=== PATIENT | male | born 1955 | race Caucasian/White ===

== ENCOUNTER 2017-02-06 07:44 | Day surgery (SDC) | payer BC ==
[2016-11-16 11:59] VITALS: BMI 44.1
[~2017-02-06 07:44] MED LIST: LACTATED RINGERS 1,000 ML IV SCH; LIDOCAINE 1% 20 ML VIAL (10MG/ML) FOR IV START INTRADERMA PRN
[2017-02-06 07:56] VITALS: TEMP 97
[2017-02-06 08:05] LABS: Glucose,Whole Blood 157 mg/dL (75-99)
--- NOTE | 2017-02-06 08:06 | P.GSHP ---
History of Present Illness H&P Date: 02/06/17 CHIEF COMPLAINT: Colon screen HISTORY OF PRESENT ILLNESS: The patient is a 61-year-old male who presents for colon screen. Lower endoscopy was offered for further evaluation and management. PAST MEDICAL HISTORY: Please see list. PAST SURGICAL HISTORY: Please see list. MEDICATIONS: Please see list. ALLERGIES: Please see list. SOCIAL HISTORY: No illicit drug use FAMILY HISTORY: No reports of Crohn disease or ulcerative colitis. REVIEW OF ORGAN SYSTEMS: CONSTITUTIONAL: No reports of fevers or chills. PHYSICAL EXAM: VITAL SIGNS: Stable GENERAL: Well-developed pleasant in no acute distress. HEENT: No scleral icterus. Extraocular movements grossly intact. Moist buccal mucosa. NECK: Supple without lymphadenopathy. CHEST: Unlabored respirations. Equal bilateral excursions. CARDIOVASCULAR: Regular rate and rhythm. Distal 2+ pulses. ABDOMEN: Soft, nontender, nondistended. MUSCULOSKELETAL: No clubbing, cyanosis, or edema. ASSESSMENT: 1. Colon screen. PLAN: 1. Recommend proceeding with a lower endoscopy Past Medical History Past Medical History: COPD, Diabetes Mellitus, GERD/Reflux, Hyperlipidemia, Myocardial Infarction ([place]), Prostate Disorder, Sleep Apnea/CPAP/BIPAP Additional Past Medical History / Comment(s): "irregular heart beat", hyperkeratosis hands and feet, enlarged prostate Last Myocardial Infarction Date:: 2005 History of Any Multi-Drug Resistant Organisms: None Reported Past Surgical History: Heart Catheterization With Stent, Orthopedic Surgery Additional Past Surgical History / Comment(s): left knee replacement, rt knee surgery, total 3 cardiac stents, COLONOSCOPY Past Anesthesia/Blood Transfusion Reactions: No Reported Reaction Date of Last Stent Placement:: NOV 2005 Past Psychological History: Anxiety Smoking Status: Former smoker Past Alcohol Use History: Rare Additional Past Alcohol Use History / Comment(s): STARTED SMOKING AGE 15 QUIT 1993, WAS SMOKING 2 PPD. Past Drug Use History: None Reported - Past Family History Mother Family Medical History: Cancer Father Family Medical History: Diabetes Mellitus, Myocardial Infarction ([place]) Additional Family Medical History / Comment(s): CABG Medications and Allergies Home Medications Medication Instructions Recorded Confirmed Type Atorvastatin [Lipitor] 20 mg PO HS 02/04/14 02/06/17 History Doxazosin [Cardura] 4 mg PO HS 02/04/14 02/06/17 History Ezetimibe [Zetia] 10 mg PO QAM 02/04/14 02/06/17 History Finasteride 5 mg PO HS 02/04/14 02/06/17 History Insulin Glargine [Lantus] 62 units SQ HS 02/04/14 02/06/17 History Lisinopril [Zestril] 5 mg PO DAILY 02/04/14 02/06/17 History Metoprolol Tartrate [Lopressor] 50 mg PO HS 02/04/14 02/06/17 History Multivitamin [Men's Multi-Vitamin] 1 tab PO DAILY 02/04/14 02/01/17 History Propafenone HCl [Rythmol] 225 mg PO BID 02/04/14 02/06/17 History Aspirin 325 mg PO HS 07/21/15 02/06/17 History [place]-3 Fatty Acids/Fish Oil [Fish 1 cap PO BID 07/21/15 02/01/17 History Oil 1,000 mg Softgel] Albuterol Inhaler [Ventolin Hfa 1 - 2 puff INHALATION Q6H PRN 07/26/15 02/06/17 History Inhaler] Albuterol Nebulized [Ventolin 2.5 mg INHALATION Q6H PRN 07/26/15 02/01/17 History Nebulized] Cholecalciferol (Vitamin D3) 10,000 unit PO DAILY 07/26/15 02/06/17 History [Vitamin D3] ALPRAZolam [Xanax] 0.5 mg PO BID PRN 11/16/16 02/06/17 History Ascorbic Acid [Vitamin C] 500 mg PO DAILY 11/16/16 02/06/17 History Insulin Aspart [NovoLOG Flexpen] 26 units SQ QAM 11/16/16 02/06/17 History Insulin Aspart [NovoLOG Flexpen] 28 units SQ W/LUNCH 11/16/16 02/06/17 History Insulin Aspart [NovoLOG Flexpen] 30 units SQ W/SUPPER 11/16/16 02/06/17 History Allergies Allergy/AdvReac Type Severity Reaction Status Date / Time adhesive Allergy SKIN PEEL, Verified 11/16/16 11:44 BLISTERS latex Allergy Rash/Hives Verified 11/16/16 11:44 codeine AdvReac SEVERE Verified 11/16/16 11:44 HEADACHE Surgical - Exam Vital Signs Temp Pulse Resp BP Pulse Ox 97.0 F L 74 15 160/81 98 05/03/17 07:55 02/06/17 07:55 02/06/17 07:55 02/06/17 07:55 02/06/17 07:55 Results - Labs Abnormal Lab Results - Last 24 Hours (Table) 02/06/17 Range/Units 08:00 POC Glucose (mg/dL) 157 H (75-99) mg/dL
[2017-02-06] MEDS ORDERED: PROPOFOL 10 MG/ML 20 ML VIAL IV ONE (08:21)
[2017-02-06 08:47] VITALS: PULSE 54; RESP 16
--- NOTE | 2017-02-06 08:48 | P.PCN ---
Date of Procedure: 02/06/17 Description of Procedure: PREOPERATIVE DIAGNOSIS: Colonoscopy screening. POSTOPERATIVE DIAGNOSIS: Colonoscopy screening. Diverticulosis, scattered. OPERATION: Colonoscopy to the ileocecal valve and appendiceal orifice. SURGEON: Lita Campoverde MD. ANESTHESIA: MAC. INDICATIONS: The patient is a 61-year-old male who presents for colonoscopy screening. His last colonoscopy was 29-10 years ago. He denies any family history of colon cancer colon polyps. Benefits and risks were described and informed consent was obtained. DESCRIPTION OF PROCEDURE: The patient had undergone Gatorade, MiraLAX and Dulcolax prep. He had been brought into the operating room and laid in the left lateral decubitus position. After adequate intravenous sedation, the rectum was examined with 2% lidocaine jelly. No external hemorrhoids were encountered. The rectal tone was within normal limits. No lesions were palpated in the rectal vault. An Olympus colonoscope was advanced until the ileocecal valve and appendiceal orifice were clearly viewed. The prep was excellent with clear visualization of the mucosal folds. The scope was removed with visualization of each mucosal fold. Scattered diverticulosis was encountered. No colonic polyps were found. No evidence of focal colitis was found. Retroflexion of the scope demonstrated grade 1 internal hemorrhoids without active bleeding or inflammation. The colon was desufflated. The patient had tolerated the procedure well. Withdrawal time was over 6 minutes. FINDINGS: No external prolapsed hemorrhoids. No arteriovenous malformations. Diverticulosis. No adenomatous polyps. No focal colitis. RECOMMENDATIONS: Lower endoscopy every 10 years per screening guidelines, due 2026; however down to 5 years with family history of colon polyps or cancer. Plan - Discharge Summary Discharge Medication List Atorvastatin [Lipitor] 20 mg PO HS 02/04/14 [History] Doxazosin [Cardura] 4 mg PO HS 02/04/14 [History] Ezetimibe [Zetia] 10 mg PO QAM 02/04/14 [History] Finasteride 5 mg PO HS 02/04/14 [History] Insulin Glargine [Lantus] 62 units SQ HS 02/04/14 [History] Lisinopril [Zestril] 5 mg PO DAILY 02/04/14 [History] Metoprolol Tartrate [Lopressor] 50 mg PO HS 02/04/14 [History] Multivitamin [Men's Multi-Vitamin] 1 tab PO DAILY 02/04/14 [History] Propafenone HCl [Rythmol] 225 mg PO BID 02/04/14 [History] Aspirin 325 mg PO HS 07/21/15 [History] [place]-3 Fatty Acids/Fish Oil [Fish Oil 1,000 mg Softgel] 1 cap PO BID 07/21/15 [ History] Albuterol Inhaler [Ventolin Hfa Inhaler] 1 - 2 puff INHALATION Q6H PRN 07/26/15 [History] Albuterol Nebulized [Ventolin Nebulized] 2.5 mg INHALATION Q6H PRN 07/26/15 [ History] Cholecalciferol (Vitamin D3) [Vitamin D3] 10,000 unit PO DAILY 07/26/15 [History ] ALPRAZolam [Xanax] 0.5 mg PO BID PRN 11/16/16 [History] Ascorbic Acid [Vitamin C] 500 mg PO DAILY 11/16/16 [History] Insulin Aspart [NovoLOG Flexpen] 26 units SQ QAM 11/16/16 [History] Insulin Aspart [NovoLOG Flexpen] 28 units SQ W/LUNCH 11/16/16 [History] Insulin Aspart [NovoLOG Flexpen] 30 units SQ W/SUPPER 11/16/16 [History]
[2017-02-06 09:01] LABS: Glucose,Whole Blood 177 mg/dL (75-99)
[2017-02-06 09:02] VITALS: BP 143/70
== END 2017-02-06 09:34 | disposition home or self-care (01) ==
LOC: ORWHC2ENDO 07:44
PROVIDERS: ATTEND Surgery Plastic and Reconstructive Surgery
DX: Z12.11 Encounter for screening for malignant neoplasm of colon (principal); K57.30 Diverticulosis of large intestine without perforation or abscess without bleeding; K64.0 First degree hemorrhoids; J44.9 Chronic obstructive pulmonary disease, unspecified; E11.9 Type 2 diabetes mellitus without complications; Z79.4 Long term (current) use of insulin; E78.5 Hyperlipidemia, unspecified; N40.0 Benign prostatic hyperplasia without lower urinary tract symptoms; G47.33 Obstructive sleep apnea (adult) (pediatric); Z99.89 Dependence on other enabling machines and devices; K21.9 Gastro-esophageal reflux disease without esophagitis; I25.10 Atherosclerotic heart disease of native coronary artery without angina pectoris; I10 Essential (primary) hypertension; Z87.891 Personal history of nicotine dependence; I25.2 Old myocardial infarction; Z79.82 Long term (current) use of aspirin; Z79.899 Other long term (current) drug therapy; Z91.040 Latex allergy status; Z88.5 Allergy status to narcotic agent; Z91.09 Other allergy status, other than to drugs and biological substances
CPT/HCPCS: J2704; G0121; 45378

== ENCOUNTER → 2018-01-17 | Outpatient (CLI) | payer BC ==
--- NOTE | 2018-01-22 10:04 | P.ARTDOP ---
Arterial Doppler LOWER EXTREMITY ARTERIAL DOPPLER: DATE OF SERVICE: 01/17/2018 Reason for study: Bilateral toe discoloration. Doppler waveforms: Multiphasic bilaterally throughout. Pulse volume recording: Normal configuration. Pressure gradients: None. Ankle-brachial indices: Greater than 1 bilaterally. Toe pressures: 1:30 on the right, 117 on the left Impression: Normal study.
== END | disposition home or self-care (01) ==
LOC: RADUSWWP 13:58
PROVIDERS: ATTEND Family Medicine
DX: I73.9 Peripheral vascular disease, unspecified (principal)
CPT/HCPCS: 93923

== ENCOUNTER → 2018-06-14 | Outpatient (CLI) | payer BC ==
[2018-06-14 10:25] LABS: HCT 43.1 % (39.0-53.0); HGB 13.6 gm/dL (13.0-17.5); MCH 28.6 pg (25.0-35.0); MCHC 31.5 g/dL (31.0-37.0); MCV 90.9 fL (80.0-100.0); Mean Platelet Volume 6.2; Platelet Count 214 k/uL (150-450); RBC 4.74 m/uL (4.30-5.90); RDW 15.4 % (11.5-15.5); WBC 8.6 k/uL (3.8-10.6)
[2018-06-14 10:40] LABS: Anion Gap 8 mmol/L; Blood Urea Nitrogen 15 mg/dL (9-20); Carbon Dioxide 28 mmol/L (22-30); Chloride 104 mmol/L (98-107); Potassium 4.6 mmol/L (3.5-5.1); Sodium 140 mmol/L (137-145)
== END | disposition home or self-care (01) ==
LOC: LABPAT 09:49
PROVIDERS: ATTEND Internal Medicine Cardiovascular Disease
DX: Z01.812 Encounter for preprocedural laboratory examination (principal); I10 Essential (primary) hypertension; E78.2 Mixed hyperlipidemia; E11.9 Type 2 diabetes mellitus without complications
CPT/HCPCS: 36415; 80051; 82565; 84520; 85027

== ENCOUNTER 2018-06-24 06:12 | Day surgery (SDC) | payer BC ==
[2018-06-18 12:03] VITALS: BMI 43.2
[2018-06-24] MEDS ORDERED: ALPRAZolam 0.25 MG TAB PO PRN (06:50)
[2018-06-24] MEDS ORDERED: SODIUM CHLORIDE 0.9% 1,000 ML in EMPTY BAG 1 BAG IV ONE (06:50)
[2018-06-24] MEDS ORDERED: ALPRAZolam 0.5 MG TAB PO PRN (06:50)
[2018-06-24] MEDS ORDERED: NITROGLYCERIN SL TABS 0.4 MG TAB SUBLINGUAL PRN (06:50)
[2018-06-24 06:58] VITALS: PULSE 62; RESP 20; TEMP 98.4
[2018-06-24] MEDS ORDERED: ASPIRIN 325 MG TAB PO ONE ×2 (07:00→07:01)
[2018-06-24] MEDS ORDERED: ATORVASTATIN 80 MG TAB PO ONE (07:00)
[2018-06-24] MEDS ORDERED: VERAPAMIL 2.5 MG/ML 2 ML AMP ONE (07:18)
[2018-06-24] MEDS ORDERED: fentaNYL (PF) 50 MCG/ML 2 ML AMP ONE (07:30)
[2018-06-24] MEDS ORDERED: HEPARIN SODIUM 1,000 UN/ML (10ML VL) ONE (07:30)
[2018-06-24] MEDS ORDERED: MIDAZOLAM 2 MG/2 ML VIAL ONE (07:30)
[2018-06-24 07:31] LABS: Glucose,Whole Blood 183 mg/dL (75-99)
[2018-06-24] MEDS ORDERED: fentaNYL (PF) 50 MCG/ML 2 ML AMP IVP ONE (07:44)
[2018-06-24] MEDS ORDERED: MIDAZOLAM 2 MG/2 ML VIAL IVP ONE (07:44)
[2018-06-24] MEDS ORDERED: IV FLUID CONTINUATION 1,000 ML IV ONE (07:45)
[2018-06-24] MEDS ORDERED: LIDOCAINE 1% (PF) 10MG/ML VIAL SQ ONE (07:47)
[2018-06-24] MEDS ORDERED: LIDOCAINE 1% INJ 10MG/ML (20 ML MDV) ONE (08:18)
[2018-06-24] MEDS ORDERED: IOPAMIDOL-370 125ML BTL INJ ONE (08:25)
[2018-06-24] MEDS ORDERED: RX INFO: IV CONTRAST WAS GIVEN 1 EACH MISC MISCELLANE PRN (08:35)
--- NOTE | 2018-06-24 08:42 | P.CARDCATH ---
Date of Procedure: 06/24/18 Preoperative Diagnosis: Ischemic heart disease and positive stress test Postoperative Diagnosis: Stable coronary artery disease with a mild disease in the circumflex and mild in -stent stenosis involving the RCA and LAD Procedure(s) Performed: Left heart catheterization without left ventriculography Description of Procedure: HISTORY: This is a 62-year-old gentleman with history of hypertension, hypercholesteremia, diabetes and previous myocardial infarction. Patient had stent placement of the RCA and also LAD. Recent stress test showed possible ischemia in the inferolateral segments. Patient is advised to have a cardiac catheterization to rule out any progression of ischemic heart disease. CONSENT:I have discussed the risks, benefits and alternative therapies for the above-mentioned procedure and for both sedation/analgesia as well as necessary blood product administration, if indicated, as they pertain to this patient. The patient has indicated understanding and acceptance of the risks and procedures discussed. PROCEDURE: Patient was brought to the lab in a fasting state. Patient was given some IV sedation. The right groin is infiltrated with lidocaine and right femoral artery was entered using Seldinger technique. A 6-Samo[place] catheter was left in place and selective coronary arteriography and left ventriculography was performed. Patient tolerated the procedure well. Femoral angiogram was performed and Angio-Seal was applied for hemostasis. No immediate complications were noted and patient was transferred to [facility] in a stable condition Conscious Sedation: Versed 1mg Fentanyl 50 g Duration 43minutes HEMODYNAMICS: The aortic pressure is about 130/70. Left ventricular end- diastolic pressure not is not obtained. SELECTIVE CORONARY ARTERIOGRAPHY: LEFT MAIN: Normal length and patent THE LEFT ANTERIOR DESCENDING CORONARY ARTERY:. This is a moderate to good caliber vessel with patent stents in the proximal portion. There maybe mild in-stent stenosis. Rest of the vessel is free of occlusive disease THE LEFT CIRCUMFLEX AND IS CORONARY ARTERY:. This is small nondominant vessel. There is also an intermittent branch. There is mild disease in the circumflex system THE RIGHT CORONARY ARTERY: This is a good caliber vessel and dominant. The stent appears to be patent with mild in-stent stenosis LEFT VENTRICULOGRAPHY: Not performed FINAL IMPRESSION:. Stable coronary artery disease with mild in-stent stenosis involving the RCA and LAD and mild disease in circumflex PLAN: Continuation of the maximum medical therapy and risk factor modification PROGNOSIS:. Good
[2018-06-24] MEDS ORDERED: SODIUM CHLORIDE 0.9% 1,000 ML IV SCH (08:45)
[2018-06-24 15:30] VITALS: BP 111/53
== END 2018-06-24 15:20 | disposition home or self-care (01) ==
LOC: CATHCVL 06:12
PROVIDERS: ATTEND Internal Medicine Cardiovascular Disease
DX: T82.855A Stenosis of coronary artery stent, initial encounter (principal); I25.10 Atherosclerotic heart disease of native coronary artery without angina pectoris; I10 Essential (primary) hypertension; E78.00 Pure hypercholesterolemia, unspecified; E11.9 Type 2 diabetes mellitus without complications; I25.2 Old myocardial infarction; I48.91 Unspecified atrial fibrillation; Z79.82 Long term (current) use of aspirin; Z79.4 Long term (current) use of insulin; Z79.1 Long term (current) use of non-steroidal anti-inflammatories (NSAID); Z79.899 Other long term (current) drug therapy; Z91.040 Latex allergy status; Z88.5 Allergy status to narcotic agent; Z91.09 Other allergy status, other than to drugs and biological substances
CPT/HCPCS: 93458; C1769; C1894; J2250; J3010; J2001; J1644; Q9967

== ENCOUNTER → 2018-11-24 | Outpatient (CLI) | payer BC ==
[2018-11-24 17:25] LABS: HGB 15.2 gm/dL (13.0-17.5); MCH 27.8 pg (25.0-35.0); MCHC 31.7 g/dL (31.0-37.0); MCV 87.6 fL (80.0-100.0); Mean Platelet Volume 6.6; Platelet Count 222 k/uL (150-450); RBC 5.48 m/uL (4.30-5.90); RDW 15.3 % (11.5-15.5); WBC 8.6 k/uL (3.8-10.6)
[2018-11-24 17:34] LABS: Albumin 4.2 g/dL (3.5-5.0); Calcium 9.9 mg/dL (8.4-10.2); INR 0.9 (<1.2); Partial Thromboplastin Time 23.4 sec (22.0-30.0); Potassium 4.6 mmol/L (3.5-5.1); Prothrombin Time 10.1 sec (9.0-12.0); Total Bilirubin 1.1 mg/dL (0.2-1.3); Total Protein 7.3 g/dL (6.3-8.2)
[2018-11-24 17:41] LABS: Appearance,Urine Clear (Clear); Bilirubin,Urine Negative (Negative); Blood,Urine Negative (Negative); Color,Urine Yellow; Glucose,Urine (UA) 1+ (Negative); Hyaline Casts,Urine 8 /lpf (0-2); Ketones,Urine Trace (Negative); Leukocyte Esterase,Urine Moderate (Negative); Mucus,Urine Few /hpf; Nitrite,Urine Negative (Negative); PH, Urine 5.5 (5.0-8.0); Protein,Urine Trace (Negative); RBC,Urine 1 /hpf (0-5); Specific Gravity,Urine 1.027 (1.001-1.035); Squamous Epithelial Cell,Urine <1 /hpf (0-4); Urobilinogen,Urine <2.0 mg/dL (<2.0); WBC,Urine 2 /hpf (0-5)
== END | disposition home or self-care (01) ==
LOC: LABPAT 16:36
PROVIDERS: ATTEND Orthopaedic Surgery
DX: Z01.812 Encounter for preprocedural laboratory examination (principal)
CPT/HCPCS: 80053; 81001; 85027; 85610; 85730

== ENCOUNTER → 2019-04-11 | Outpatient (CLI) | payer BC ==
[2019-04-11 10:12] LABS: HCT 49.6 % (39.0-53.0); HGB 16.8 gm/dL (13.0-17.5); MCH 29.5 pg (25.0-35.0); MCHC 33.9 g/dL (31.0-37.0); MCV 86.9 fL (80.0-100.0); Mean Platelet Volume 6.5; Platelet Count 191 k/uL (150-450); RBC 5.71 m/uL (4.30-5.90); RDW 15.2 % (11.5-15.5); WBC 7.9 k/uL (3.8-10.6)
[2019-04-11 10:22] LABS: ALT 38 U/L (21-72); AST 32 U/L (17-59); African American GFR (CKD) >90 (>60 ml/min/1.73 sqM); Albumin 4.4 g/dL (3.5-5.0); Alkaline Phosphatase 82 U/L (38-126); Anion Gap 12 mmol/L; Blood Urea Nitrogen 22 mg/dL (9-20); Calcium 9.7 mg/dL (8.4-10.2); Carbon Dioxide 23 mmol/L (22-30); Chloride 104 mmol/L (98-107); Glucose 210 mg/dL (74-99); Potassium 4.7 mmol/L (3.5-5.1); Sodium 139 mmol/L (137-145); Total Bilirubin 1.4 mg/dL (0.2-1.3); Total Protein 7.3 g/dL (6.3-8.2)
[2019-04-11 10:32] LABS: INR 0.9 (<1.2); Partial Thromboplastin Time 23.9 sec (22.0-30.0); Prothrombin Time 10.1 sec (9.0-12.0)
[2019-04-11 11:16] LABS: Appearance,Urine Clear (Clear); Bacteria,Urine Rare /hpf; Bilirubin,Urine Negative (Negative); Blood,Urine Negative (Negative); Color,Urine Yellow; Glucose,Urine (UA) 1+ (Negative); Hyaline Casts,Urine 1 /lpf (0-2); Ketones,Urine Negative (Negative); Leukocyte Esterase,Urine Large (Negative); Mucus,Urine Rare /hpf; Nitrite,Urine Negative (Negative); PH, Urine 5.5 (5.0-8.0); Protein,Urine Negative (Negative); RBC,Urine 1 /hpf (0-5); Specific Gravity,Urine 1.018 (1.001-1.035); Squamous Epithelial Cell,Urine <1 /hpf (0-4); Urobilinogen,Urine <2.0 mg/dL (<2.0); WBC,Urine 13 /hpf (0-5)
== END | disposition home or self-care (01) ==
LOC: LABPAT 09:07
PROVIDERS: ATTEND Orthopaedic Surgery
DX: Z01.812 Encounter for preprocedural laboratory examination (principal); Z01.818 Encounter for other preprocedural examination; M17.11 Unilateral primary osteoarthritis, right knee
CPT/HCPCS: 80053; 81001; 85027; 85610; 85730; 87070

== ENCOUNTER 2019-04-28 07:00 | Inpatient (IN) | payer BC ==
[~2019-04-28 07:00] MED LIST changes: +ACETAMINOPHEN TAB 500 MG TAB PO ONE; +DEXAMETHASONE SOD PHOSPHATE 10 MG/ML 1 ML VIAL IV ONE; +HYDROmorphone 0.5 MG/0.5 ML SYRINGE IVP PRN; -LACTATED RINGERS 1,000 ML IV SCH; -LIDOCAINE 1% 20 ML VIAL (10MG/ML) FOR IV START INTRADERMA PRN; +MELOXICAM 7.5 MG TAB PO ONE; +MIDAZOLAM 2 MG/2 ML VIAL IV PRN; +ONDANSETRON 4 MG/2 ML VIAL IVP ONE; +ROPIVACAINE 246.25 MG, EPINEPHrine 0.5 MG, KETOROLAC 30 MG, cloNIDine HCL/PF 80 MCG, WA... MISCELLANE ONE; +TRANEXAMIC ACID 1,000 MG in SODIUM CHLORIDE 0.9% 100 ML IVPB ONE; +ceFAZolin 3 GM in SODIUM CHLORIDE 0.9% 100 ML IVPB ONE
[2019-04-28] MEDS ORDERED: LACTATED RINGERS 1,000 ML IV ONE ×2 (12:04→15:34)
[2019-04-28] MEDS ORDERED: LIDOCAINE 1% 20 ML VIAL (10MG/ML) FOR IV START INTRADERMA ONE (12:04)
[2019-04-28 12:05] LABS: Glucose,Whole Blood 211 mg/dL (75-99)
[2019-04-28] MEDS ORDERED: MIDAZOLAM (PF) 2 MG/2 ML VIAL IVP ONE (12:52)
--- NOTE | 2019-04-28 13:39 | P.ANPRN ---
Procedure Note - Anesthesia - Nerve Block Performed Right Adductor Canal Infusion Time Out Performed: Yes Date of Procedure: 04/28/19 Procedure Start Time: 12:52 Procedure Stop Time: 13:02 Location of Patient Procedure: PreOp Indication: Acute Post-Operative Pain, Dx/Pain Location (Right Knee Pain), Requested by physician (Bryanna) Sedation Type: Sedate with meaningful contact maintained Preparation: Sterile Prep Position: Supine Catheter: Indwelling Needle Types: Pajunk Needle Gauge: Other (see comment) Technique: Ultrasound Injectate: 0.5% Ropivacaine (see comment for volume) (20ml) Blood Aspirated: No Pain Paresthesia on Injection Noted: No Resistance on Injection: Normal Events: Uneventful and Well Tolerated
[2019-04-28] MEDS ORDERED: fentaNYL (PF) 50 MCG/ML 2 ML AMP ONE (13:54)
[2019-04-28] MEDS ORDERED: TRANEXAMIC ACID 1,000 MG/10 ML VIAL ONE (13:54)
[2019-04-28] MEDS ORDERED: PROPOFOL 10 MG/ML 20 ML VIAL IV ONE (13:54)
[2019-04-28] MEDS ORDERED: MIDAZOLAM 2 MG/2 ML VIAL ONE (13:54)
[2019-04-28] MEDS ORDERED: SODIUM CHLORIDE 0.9% 100 ML BAG ONE (13:54)
[2019-04-28] MEDS ORDERED: ceFAZolin 3,000 MG in SODIUM CHLORIDE 0.9% IRRIGATIO 3,000 ML IRRIGATION ONE (14:02)
[2019-04-28] MEDS ORDERED: BISACODYL 10 MG SUPP RECTAL PRN (14:06)
[2019-04-28] MEDS ORDERED: MAGNESIUM HYDROXIDE 2,400 MG/10 ML CUP PO PRN (14:06)
[2019-04-28] MEDS ORDERED: HYDROmorphone 1 MG/ML 1 ML SYRINGE IVP PRN (14:06)
[2019-04-28] MEDS ORDERED: NALOXONE 0.4 MG/ML 1 ML VIAL IV PRN (14:06)
[2019-04-28] MEDS ORDERED: hydrOXYzine PAMOATE 25 MG CAP PO PRN (14:06)
[2019-04-28] MEDS ORDERED: ONDANSETRON 4 MG/2 ML VIAL IVP PRN (14:06)
[2019-04-28] MEDS ORDERED: NA PHOS,M-B/NA PHOS,DI-BA 133 ML ENEMA RECTAL PRN (14:06)
[2019-04-28] MEDS ORDERED: DIAZEPAM 5 MG TAB PO PRN (14:06)
[2019-04-28] MEDS ORDERED: HYDROcodone/APAP 5-325MG 1 EACH TAB PO PRN (14:06)
[2019-04-28] MEDS ORDERED: HYDROmorphone 0.5 MG/0.5 ML SYRINGE IVP PRN ×2 (14:06)
[2019-04-28] MEDS ORDERED: ROPIVACAINE 1,100 MG, SODIUM CHLORIDE 0.9% 500 ML 330 ML MISCELLANE PRN ×2 (14:37)
--- NOTE | 2019-04-28 15:24 | P.OP ---
Date of Procedure: 04/28/19 Preoperative Diagnosis: Severe osteoarthritis right knee Postoperative Diagnosis: Severe osteoarthritis right knee Procedure(s) Performed: Right total knee arthroplasty Implants: Mondragon [employer] Nephew Journey II CR Oxinium cruciate retaining femoral component size 7, right [employer] Journey right nonporous tibial baseplate size 7 Mondr[employer]hew Journey II, XLPE Deep Dished articular insert, size 9 mm, Size 7- 8 right [employer] Journey BCS resurfacing oval patellar component, 35 mm All components were cemented using [place]os R bone cement.. The articulation is Oxinium on polyethylene. Anesthesia: spinal Surgeon: Paul Chopra Product Assembler #1: Moriah Aleman Estimated Blood Loss (ml): 50 Pathology: other (Bone and cartilage) Condition: stable Disposition: PACU Indications for Procedure: After failure of conservative treatment we discussed the surgical and nonsurgical treatment options at length. Patient wishes to proceed with a total knee arthroplasty. Complications specific to this procedure were discussed at length, including but not limited to infection, bleeding, stiffness, and nerve injury. Patient is aware of all these complications and informed consent was obtained Operative Findings: The operative findings are consistent with severe osteoarthritis the right knee Description of Procedure: Patient was seen in the preoperative area consent was reviewed and operative site was marked with a skin marker. An adductor canal pain catheter was placed by anesthesia in the preoperative area. Patient was then brought to the operating room and given preoperative antibiotics intravenously. A spinal anesthetic was administered by the anesthesia department. A tourniquet was placed on the upper thigh and the lower extremity was prepped and draped in usual sterile fashion. A gram of transexamic acid was given. A universal timeout was then performed which confirmed the patient's name, surgical site, ALLERGIES, and consent. The lower extremity was then exsanguinated and tourniquet was inflated to 250 mmHg. A standard and anterior midline approach to the knee was performed. The skin and subcutaneous tissue was dissected down to the patellar tendon. A medial parapatellar arthrotomy was then performed. The knee was then extended, the patellar was everted, and the knee was again flexed. Anterior horns of both menisci were excised, and a release was performed to the posterior medial aspect of the knee. On gross visual inspection, there was complete loss of articular cartilage in the medial and patellofemoral joint spaces. There was also significant cartilage damage in the lateral compartment. There were multiple periarticular osteophytes which were then removed with a Ronguer. The femoral canal was then opened with the appropriate drill, and the intramedullary femoral cutting guide was then placed and set for 5 of valgus. The distal femoral cutting block was then pinned in place, and the distal femur was then cut. The cutting block was then removed and the cut was checked for flatness. Next, the sizing guide was then placed and set for 3 external rotation based off of the epicondylar axis and Whitesides line. After the femur was sized, the appropriate 4-in-1 cutting block was then pinned in place. The anterior condyles were cut without notching. The posterior and chamfer cuts were performed while protecting the collateral ligaments. The cutting block was then removed, and the femoral canal was plugged with autologous bone. Attention was then directed to the tibia. The remaining ACL was removed with a Ronguer, and the tibia was then gently subluxed forward with a large bent knee retractor. Any remaining menisci was excised. The posterior lateral corner was cauterized in order to cauterize the lateral geniculate artery. The extra medullary tibial cutting guide was then placed, set for the appropriate rotation, slope, and depth of resection. The proximal tibia cutting guide was then pinned in place. Proximal tibia was then cut and sized. Next trials were then placed with the appropriate-sized insert. The knee was able to fully extend and flex to 130 and was stable throughout all range of motion. The knee was then extended, patella everted. Patella was then measured, and then using an osteotomy guide, the patella was cut at the appropriate level. The patella was then measured and drilled and the patella trial was then placed. The knee was then taken through range of motion with the patella trial and the patella tracked normally. The knee was then extended patella trial was then removed and the patella was everted. Knee was then flexed and lug holes were drilled through the femoral trial and the femoral trial was then removed. The tibial was then exposed, and the tibial broach guide was then pinned in place after it was set for the appropriate rotation to allow for the most coverage without overhang. The tibia was then reamed and broached. The cut surfaces of bone were then irrigated with pulsatile lavage. The posterior structures were injected with the ropivacaine solution. The knee was also irrigated with Irrisept solution. The components were then opened, the cement was mixed, and the components were then cemented in place. The cement was allowed to harden with the knee in full extension. While the cement was hardening, the remaining soft tissues were then injected with a ropivacaine solution, which consisted of 246.25 mg of ropivacaine, 0.5 mg of epinephrine, 30 mg of Toradol, 80 g of clonidine, and 48.45 mL of sterile water, for a total of 100 mL of fluid injected. After the cemented hardened. The tourniquet was released, and hemostasis was obtained. A second gram of transexamic acid was given. The knee was again irrigated. The knee was again taken through range of motion and found to be stable throughout all range of motion of 0-130, and the patella tracked normally. The fascia was then closed with #2 strata fix suture. The subcutaneous tissue was closed with 3-0 Vicryl and 3-0 strata fix. Dermabond glue was used for the skin and placed with the knee in flexion. The patient was placed in a sterile silver dressing. Patient was then transferred to recovery room in stable condition. The assistant hvac mechanic THA Arnold was required due the complexity surgery and the need for a skilled manager surgical. She assisted in positioning, draping, retraction, and closure of the wound.
[2019-04-28 16:21] LABS: Glucose,Whole Blood 209 mg/dL (75-99)
--- NOTE | 2019-04-28 17:24 | XR ---
PROCEDURE: XR knee limited RT - 2 views DATE AND TIME: 04/28/2019 4:53 PM CLINICAL INDICATION: Evaluation for Postop abnormality and alignment TECHNIQUE: Postoperative AP and crosstable lateral views COMPARISON: 03/01/2016 FINDINGS: Right TKR in anatomic positioning and alignment. No unexpected findings. IMPRESSION: Postoperative 2 views.
[2019-04-28 17:52] VITALS: BMI 41.6
[2019-04-28 20:23] LABS: Glucose,Whole Blood 351 mg/dL (75-99)
[2019-04-28] MEDS: LACTATED RINGERS 1,000 ML IV SCH (20:34)
[2019-04-28] MEDS: SODIUM CHLORIDE 0.9% 1,000 ML IV SCH (20:35)
[2019-04-28] MEDS ORDERED: ALBUTEROL NEBULIZED 2.5 MG/3 ML INHALATION PRN (20:59)
[2019-04-28] MEDS ORDERED: ALPRAZolam 0.5 MG TAB PO PRN (20:59)
[2019-04-28] MEDS ORDERED: INSULIN DETEMIR (LEVEMIR) 100 UNIT/ML SYR SQ SCH (21:00)
[2019-04-28] MEDS ORDERED: ATORVASTATIN 20 MG TAB PO SCH (21:00)
[2019-04-28] MEDS ORDERED: SENNOSIDES-DOCUSATE SODIUM 1 EACH TAB PO SCH (21:00)
[2019-04-28] MEDS ORDERED: FINASTERIDE 5 MG TAB PO SCH (21:00)
[2019-04-28] MEDS ORDERED: DOXAZOSIN 4 MG TAB PO SCH (21:00)
[2019-04-28] MEDS: INSULIN ASPART (NovoLOG) 100 UNIT/ML VIAL SQ SCH (21:50)
[2019-04-28] MEDS: METOPROLOL TARTRATE 50 MG TAB PO SCH (21:51)
[2019-04-28] MEDS: ASPIRIN 325 MG TAB PO SCH (21:51)
[2019-04-28] MEDS: ceFAZolin 3 GM in SODIUM CHLORIDE 0.9% 100 ML IVPB SCH (21:51)
[2019-04-28] MEDS: GABAPENTIN 300 MG CAP PO SCH (21:51)
[2019-04-28] MEDS: PROPAFENONE 225 MG TAB PO SCH (21:51)
--- NOTE | 2019-04-28 23:09 | P.CONS ---
History of Present Illness - Reason for Consult Consult date: 04/28/19 medical management post op Requesting physician: Paul Chopra - Chief Complaint hyperglycemia post op - History of Present Illness 63-year-old male with history of hypertension diabetes Patient presented for scheduled right total knee arthroplasty tolerated procedure well. Patient seen postoperatively no observed immediate complications tolerated by mouth intake patient passed urine. Pain is well tolerated. Patient has hyperglycemia went over his insulin regimen at home. He denies any excessive thirst or polyuria at this point denies any abdominal pain headache changes in vision or hearing. Medication list reviewed. Review of Systems Pertinent positives as noted in HPI. All other systems were reviewed and are negative Past Medical History Past Medical History: COPD, Diabetes Mellitus, GERD/Reflux, Hyperlipidemia, Myocardial Infarction ([place]), Prostate Disorder, Sleep Apnea/CPAP/BIPAP Additional Past Medical History / Comment(s): "irregular heart beat", hyperkeratosis hands and feet, enlarged prostate,no cpap Last Myocardial Infarction Date:: 2005 History of Any Multi-Drug Resistant Organisms: None Reported Past Surgical History: Heart Catheterization With Stent, Orthopedic Surgery Additional Past Surgical History / Comment(s): left knee replacement, rt knee surgery, total 3 cardiac stents, COLONOSCOPY Past Anesthesia/Blood Transfusion Reactions: No Reported Reaction Additional Past Anesthesia/Blood Transfusion Reaction / Comm: no hx blood transfusion Date of Last Stent Placement:: NOV 2005 Smoking Status: Former smoker - Past Family History Mother Family Medical History: Cancer Additional Family Medical History / Comment(s): breast Father Family Medical History: Diabetes Mellitus, Myocardial Infarction ([place]) Additional Family Medical History / Comment(s): CABG Medications and Allergies Home Medications Medication Instructions Recorded Confirmed Type Atorvastatin [Lipitor] 20 mg PO HS 02/04/14 04/28/19 History Doxazosin [Cardura] 4 mg PO HS 02/04/14 04/28/19 History Ezetimibe [Zetia] 10 mg PO QAM 02/04/14 04/28/19 History Finasteride 5 mg PO HS 02/04/14 04/28/19 History Insulin Glargine [Lantus] 62 units SQ HS 02/04/14 04/28/19 History Lisinopril [Zestril] 5 mg PO QAM 02/04/14 04/28/19 History Metoprolol Tartrate [Lopressor] 50 mg PO BID 02/04/14 04/28/19 History Multivitamin [Men's Multi-Vitamin] 1 tab PO QAM 02/04/14 04/28/19 History Propafenone HCl [Rythmol] 225 mg PO BID 02/04/14 04/28/19 History Aspirin 325 mg PO HS 07/21/15 04/28/19 History [place]-3 Fatty Acids/Fish Oil [Fish 1 cap PO BID 07/21/15 04/28/19 History Oil 1,000 mg Softgel] Albuterol Inhaler [Ventolin Hfa 1 - 2 puff INHALATION RT-Q6H PRN 07/26/15 04/28/19 History Inhaler] Albuterol Nebulized [Ventolin 2.5 mg INHALATION RT-QID PRN 07/26/15 04/28/19 History Nebulized] Cholecalciferol (Vitamin D3) 10,000 unit PO DAILY 07/26/15 04/28/19 History [Vitamin D3] ALPRAZolam [Xanax] 0.5 mg PO BID PRN 11/16/16 04/28/19 History Ascorbic Acid [Vitamin C] 500 mg PO DAILY 11/16/16 04/28/19 History Insulin Aspart [NovoLOG Flexpen] 26 units SQ W/BRKFST 11/16/16 04/28/19 History Insulin Aspart [NovoLOG Flexpen] 28 units SQ W/LUNCH 11/16/16 04/28/19 History Insulin Aspart [NovoLOG Flexpen] 30 units SQ W/SUPPER 11/16/16 04/28/19 History Diphenox-Atrop 2.5-0.025 mg 1 tab PO BID 06/24/18 04/28/19 History [Lomotil] Fluticasone/Salmeterol [Advair 1 puff INHALATION RT-BID 06/24/18 04/28/19 History 100-50 Diskus] Gabapentin [Neurontin] 300 mg PO TID 12/02/18 04/28/19 History HYDROcodone/APAP 10-325MG [[place] 1 tab PO DAILY PRN 12/02/18 04/28/19 History 10-325] Allergies Allergy/AdvReac Type Severity Reaction Status Date / Time adhesive Allergy SKIN PEEL, Verified 04/28/19 19:04 BLISTERS(states "paper tape is ok" latex Allergy Rash/Hives Verified 04/28/19 19:04 codeine AdvReac SEVERE Verified 04/28/19 19:04 HEADACHE Physical Exam Vitals: Vital Signs Temp Pulse Resp BP Pulse Ox 04/28/19 17:46 97.9 F 67 17 144/68 97 04/28/19 17:02 61 16 124/60 98 04/28/19 16:47 71 16 138/64 93 L 04/28/19 16:34 65 16 141/65 93 L 04/28/19 16:15 68 16 142/62 93 L 04/28/19 16:00 73 16 145/66 90 L 04/28/19 15:54 97.5 F L 74 16 139/64 94 L 04/28/19 13:09 95 18 149/67 98 04/28/19 12:49 84 18 154/72 96 04/28/19 12:08 97.8 F 118 H 118 H 155/83 95 Intake and Output 04/28/19 04/28/19 04/28/19 06:59 14:59 22:59 Intake Total 1101 636 Output Total 50 Balance 1101 586 Intake: IV 1101 200 Oral 436 Output: Estimated Blood Loss 50 Constitutional: No acute distress, conversant, pleasant Eyes: Anicteric sclerae, moist conjunctiva, no lid-lag Pupils equal round reactive to light ENMT: NC/AT Oropharynx clear, no erythema, or exudates Neck: Supple, FROM, no masses, or JVD No carotid bruits No thyromegaly Lungs: Clear to auscultation Clear to percussion Normal respiratory effort, no accessory muscle use Cardiovascular: Heart regular in rate and rhythm, No murmurs, gallops, or rubs No peripheral edema Abdominal: Soft Nontender, no guarding, rebound or rigidity Abdomen moving with respiration Normoactive bowel sounds No hepatomegaly, No splenomegaly No palpable mass No abdominal wall hernia noted Skin: Normal temperature, tone, texture, turgor No induration No subcutaneous nodules No rash, lesions No ulcers Extremities: No digital cyanosis No clubbing Pedal pulses intact and symmetrical Radial pulses intact and symmetrical No calf tenderness Psychiatric: Alert and oriented to person, place and time Appropriate affect fair judgment Neuro Muscles Strength 5/5 in all 4 extremities , limited exam over right lower extremity due to pain from surgery Sensation to light touch grossly present throughout Cranial nerves II-XII grossly intact No focal sensory deficits Lymphatics: no palpable cervical or supraclavicular , or inguinal lymph nodes Results Labs: Abnormal Lab Results - Last 24 Hours (Table) 04/28/19 04/28/19 04/28/19 Range/Units 12:03 16:19 20:23 POC Glucose (mg/dL) 211 H 209 H 351 H (75-99) mg/dL Assessment and Plan Assessment: 63 year old male with history of DM, hypertension , admitted for TKR due to advanced severe OA. patient tolerated procedure well, medicine consulted for post op management of DM and hypertension . Plan: Hyperlycemia , DM type 2 insuline sliding scale insuline TID 10 units long acting insulin , home dose of 62 units COPD without exacerbation PRN duoneb continue home inhalers hypertension , continue homemeds severe advanced OA of the right knee, s/p TKR POD zero pain and DVT PPx per orthopedic service IRENE not compliant with his CPAP use f/u morning labs Thank you for allowing us to participate in the care of this patient. Do not hesitate to contact us with questions. Someone can be reached from the [facility] hospitalist group at all hours of the day at [phone].
[2019-04-29 03:01] VITALS: RESP 16
[2019-04-29] MEDS: HYDROcodone/APAP 5-325MG 1 EACH TAB PO PRN ×2 (05:27→11:33)
[2019-04-29] MEDS: ceFAZolin 3 GM in SODIUM CHLORIDE 0.9% 100 ML IVPB SCH (05:27)
[2019-04-29] MEDS: LACTATED RINGERS 1,000 ML IV SCH (05:33)
[2019-04-29] MEDS: SODIUM CHLORIDE 0.9% 1,000 ML IV SCH (05:33)
--- NOTE | 2019-04-29 06:10 | P.PN ---
Progress Note - Text Progress Note Date: 04/29/19 63-year-old male status post right total knee arthroplasty postop day #1 with a adductor canal catheter. Overall doing well VAS between a 2-4-10 in severity. He does take some oral medication. He's been ambulating all night with no issue. Dressing site looks clean dry and intact. No motor or sensory deficit. Plan is to continue with infusion and likely discharge home.
[2019-04-29 06:52] LABS: Glucose,Whole Blood 168 mg/dL (75-99)
[2019-04-29] MEDS: INSULIN ASPART (NovoLOG) 100 UNIT/ML VIAL SQ SCH ×4 (07:29→12:04)
[2019-04-29] MEDS ORDERED: INSULIN ASPART (NovoLOG) 100 UNIT/ML VIAL SQ SCH ×2 (07:30)
[2019-04-29 07:56] VITALS: BP 144/76; PULSE 76; TEMP 98.3
[2019-04-29] MEDS ORDERED: SYMBICORT 80-4.5 MCG INHALER INHALATION SCH (08:00)
[2019-04-29 08:39] LABS: Basophils % (A) 0 %; Eosinophils # (A) 0.1 k/uL (0-0.7); Eosinophils % (A) 1 %; HCT 41.4 % (39.0-53.0); Lymphocytes # (A) 1.4 k/uL (1.0-4.8); Lymphocytes % (A) 11 %; MCH 29.9 pg (25.0-35.0); MCHC 33.8 g/dL (31.0-37.0); MCV 88.6 fL (80.0-100.0); Mean Platelet Volume 6.8; Monocytes # (A) 0.6 k/uL (0-1.0); Monocytes % (A) 5 %; Neutrophils # (A) 10.1 k/uL (1.3-7.7); Neutrophils % (A) 82 %; Platelet Count 207 k/uL (150-450); RBC 4.68 m/uL (4.30-5.90); RDW 15.1 % (11.5-15.5); WBC 12.3 k/uL (3.8-10.6)
[2019-04-29 08:43] LABS: African American GFR (CKD) >90 (>60 ml/min/1.73 sqM); Anion Gap 12 mmol/L; Blood Urea Nitrogen 21 mg/dL (9-20); Calcium 9.4 mg/dL (8.4-10.2); Carbon Dioxide 21 mmol/L (22-30); Chloride 104 mmol/L (98-107); Glucose 189 mg/dL (74-99); Potassium 4.4 mmol/L (3.5-5.1); Sodium 137 mmol/L (137-145)
[2019-04-29] MEDS ORDERED: MELOXICAM 7.5 MG TAB PO SCH (09:00)
[2019-04-29] MEDS ORDERED: EZETIMIBE 10 MG TAB PO SCH (09:00)
[2019-04-29] MEDS ORDERED: LISINOPRIL 5 MG TAB PO SCH (09:00)
--- NOTE | 2019-04-29 09:04 | P.DS ---
Providers Date of admission: 04/28/19 17:19 Expected date of discharge: 04/29/19 Attending physician: Paul Chopra Consults: 04/28/19 14:06 Consult Physician Routine Consulting Provider: Pradeep Louis Consult Reason/Comments: medical management Do you want consulting provider notified?: Yes Primary care physician: Stated None - Discharge Diagnosis(es) (1) Osteoarthritis of right knee Current Visit: Yes Status: Acute (2) S/P total knee arthroplasty Current Visit: Yes Status: Acute Hospital Course: This is a 63-year-old male with known history of degenerative arthritis of the right knee. The patient presents for evaluation. After discussion and consideration patient elects to proceed with total knee arthroplasty. The patient is seen preoperatively by Dr. Chopra and medically cleared for surgery by their primary care physician. Patient is admitted to [facility] on 04/28/2019 for total knee arthroplasty. The procedures performed without complication or sequelae. The patient is doing well postoperatively. Labs and vital signs are stable on day of discharge. On day of discharge patient's knee incision is healing well. There is minimal erythema. There is no drainage noted at this time. There is minimal soft tissue swelling to the knee. Patient has full foot and ankle motion without difficulty or pain. Calf is soft and nontender to palpation. Neurovascular status to the right lower extremity is intact. Patient is discharged home in good condition. Opioid start talking form is reviewed and signed at patient bedside. Please see med rec for accurate list of home medications. Plan - Discharge Summary Discharge Rx Participant: No New Discharge Prescriptions: New Aspirin 325 mg PO BID #60 tab HYDROcodone/APAP 5-325MG [[place] 5-325] 1 - 2 tab PO Q6HR PRN #56 tab PRN Reason: Pain Sennosides [Senokot] 1 tab PO BID #60 tablet No Action Lisinopril [Zestril] 5 mg PO QAM Atorvastatin [Lipitor] 20 mg PO HS Metoprolol Tartrate [Lopressor] 50 mg PO BID Insulin Glargine [Lantus] 62 units SQ HS Multivitamin [Men's Multi-Vitamin] 1 tab PO QAM Ezetimibe [Zetia] 10 mg PO QAM Doxazosin [Cardura] 4 mg PO HS Propafenone HCl [Rythmol] 225 mg PO BID Finasteride 5 mg PO HS [place]-3 Fatty Acids/Fish Oil [Fish Oil 1,000 mg Softgel] 1 cap PO BID Aspirin 325 mg PO HS Albuterol Nebulized [Ventolin Nebulized] 2.5 mg INHALATION RT-QID PRN PRN Reason: Shortness Of Breath Albuterol Inhaler [Ventolin Hfa Inhaler] 1 - 2 puff INHALATION RT-Q6H PRN PRN Reason: Wheezing Cholecalciferol (Vitamin D3) [Vitamin D3] 10,000 unit PO DAILY Ascorbic Acid [Vitamin C] 500 mg PO DAILY Insulin Aspart [NovoLOG Flexpen] 30 units SQ W/SUPPER Insulin Aspart [NovoLOG Flexpen] 28 units SQ W/LUNCH Insulin Aspart [NovoLOG Flexpen] 26 units SQ W/BRKFST ALPRAZolam [Xanax] 0.5 mg PO BID PRN PRN Reason: Anxiety Diphenox-Atrop 2.5-0.025 mg [Lomotil] 1 tab PO BID Fluticasone/Salmeterol [Advair 100-50 Diskus] 1 puff INHALATION RT-BID HYDROcodone/APAP 10-325MG [[place] 10-325] 1 tab PO DAILY PRN PRN Reason: Pain Gabapentin [Neurontin] 300 mg PO TID Discharge Medication List Atorvastatin [Lipitor] 20 mg PO HS 02/04/14 [History] Doxazosin [Cardura] 4 mg PO HS 02/04/14 [History] Ezetimibe [Zetia] 10 mg PO QAM 02/04/14 [History] Finasteride 5 mg PO HS 02/04/14 [History] Insulin Glargine [Lantus] 62 units SQ HS 02/04/14 [History] Lisinopril [Zestril] 5 mg PO QAM 02/04/14 [History] Metoprolol Tartrate [Lopressor] 50 mg PO BID 02/04/14 [History] Multivitamin [Men's Multi-Vitamin] 1 tab PO QAM 02/04/14 [History] Propafenone HCl [Rythmol] 225 mg PO BID 02/04/14 [History] Aspirin 325 mg PO HS 07/21/15 [History] [place]-3 Fatty Acids/Fish Oil [Fish Oil 1,000 mg Softgel] 1 cap PO BID 10/15/15 [History] Albuterol Inhaler [Ventolin Hfa Inhaler] 1 - 2 puff INHALATION RT-Q6H PRN [History] Albuterol Nebulized [Ventolin Nebulized] 2.5 mg INHALATION RT-QID PRN 07/26/15 [History] Cholecalciferol (Vitamin D3) [Vitamin D3] 10,000 unit PO DAILY 07/26/15 [History] ALPRAZolam [Xanax] 0.5 mg PO BID PRN 11/16/16 [History] Ascorbic Acid [Vitamin C] 500 mg PO DAILY 11/16/16 [History] Insulin Aspart [NovoLOG Flexpen] 26 units SQ W/BRKFST 11/16/16 [History] Insulin Aspart [NovoLOG Flexpen] 28 units SQ W/LUNCH 11/16/16 [History] Insulin Aspart [NovoLOG Flexpen] 30 units SQ W/SUPPER 11/16/16 [History] Diphenox-Atrop 2.5-0.025 mg [Lomotil] 1 tab PO BID 06/24/18 [History] Fluticasone/Salmeterol [Advair 100-50 Diskus] 1 puff INHALATION RT-BID 06/24/18 [History] Gabapentin [Neurontin] 300 mg PO TID 12/02/18 [History] HYDROcodone/APAP 10-325MG [[place] 10-325] 1 tab PO DAILY PRN 12/02/18 [History] Aspirin 325 mg PO BID #60 tab 04/29/19 [Rx] HYDROcodone/APAP 5-325MG [[place] 5-325] 1 - 2 tab PO Q6HR PRN #56 tab 04/29/19 [Rx] Sennosides [Senokot] 1 tab PO BID #60 tablet 04/29/19 [Rx] Follow up Appointment(s)/Referral(s): Paul Chopra DO [Doctor of Osteopathic Medicine] - 2 Weeks Activity/Diet/Wound Care/Special Instructions: Weightbearing as tolerated with a walker. CPM 5-6h daily. Leave dressing intact. May be removed by home care nurse or by patient in 10 days. May shower with dressing on. Please follow up with [facility] and call with any questions or concerns, . Discharge Disposition: HOME WITH HOME HEALTH SERVICES
[2019-04-29] MEDS: METOPROLOL TARTRATE 50 MG TAB PO SCH (09:17)
[2019-04-29] MEDS: GABAPENTIN 300 MG CAP PO SCH (09:18)
[2019-04-29] MEDS: ASPIRIN 325 MG TAB PO SCH (09:18)
[2019-04-29] MEDS: PROPAFENONE 225 MG TAB PO SCH (09:18)
--- NOTE | 2019-04-29 10:12 | P.PN ---
Subjective Progress Note Date: 04/29/19 Principal diagnosis: knee pain Patient seen and examined at bedside. He states his pain is well controlled. Denies any chest pain, shortness breath, nausea, or vomiting. Objective - Vital Signs Vital signs: Vital Signs Temp 98.3 F 04/29/19 07:00 Pulse 76 04/29/19 08:15 Resp 16 04/29/19 08:15 BP 144/76 04/29/19 07:00 Pulse Ox 96 04/29/19 07:00 Intake & Output 04/28/19 04/29/19 04/29/19 18:59 06:59 18:59 Intake Total 1737 917.5 566 Output Total 50 Balance 1687 917.5 566 Intake: IV 1301 Intake, IV Titration 327.5 Amount Sodium Chloride 0.9% 1, 227.5 000 ml @ 65 mls/hr IV . [id number] [facility] Rx#:[id number] ceFAZolin 3 gm In Sodium 100 Chloride 0.9% 100 ml @ 200 mls/hr IVPB Q8H [facility] Rx#:[id number] Oral 436 590 566 Output: Estimated Blood Loss 50 Other: Voiding Method Toilet Toilet Urinal Urinal # Voids 4 1 - Exam General: non toxic, no distress, appears at stated age, Obese Derm: dreeing in place over right knee, warm, dry Head: atraumatic, normocephalic, symmetric Eyes: EOMI, no lid lag, anicteric sclera Mouth: no lip lesion, mucus membranes moist Cardiovascular: S1S2 reg, no murmur, positive posterior tibial pulse bilateral, Lungs: CTA bilateral, no rhonchi, no rales , no accessory muscle use Abdominal: soft, nontender to palpation, no guarding, no appreciable organomegaly Ext: no gross muscle atrophy, no edema, no contractures Neuro: CN II-XI grossly intact, no focal neuro deficits Psych: Alert, oriented, appropriate affect - Labs CBC & Chem 7: 04/29/19 07:40 04/29/19 07:40 Labs: Abnormal Lab Results - Last 24 Hours (Table) 04/28/19 04/28/19 04/28/19 Range/Units 12:03 16:19 20:23 WBC (3.8-10.6) k/uL Neutrophils # (1.3-7.7) k/uL Carbon Dioxide (22-30) mmol/L BUN (9-20) mg/dL Glucose (74-99) mg/dL POC Glucose (mg/dL) 211 H 209 H 351 H (75-99) mg/dL 04/29/19 04/29/19 04/29/19 Range/Units 06:48 07:40 07:40 WBC 12.3 H (3.8-10.6) k/uL Neutrophils # 10.1 H (1.3-7.7) k/uL Carbon Dioxide 21 L (22-30) mmol/L BUN 21 H (9-20) mg/dL Glucose 189 H (74-99) mg/dL POC Glucose (mg/dL) 168 H (75-99) mg/dL Assessment and Plan Assessment: Patient is a 63-year-old male status post right total knee arthroplasty Diabetes mellitus type 2, insulin-requiring, with hyperglycemia on admission -Discussed with patient the need for close blood sugar monitoring in the postoperative period. He will continue checking blood sugars 4 times daily. He'll call his family physician should he have consistent blood sugars greater than 200. His blood sugar typically runs around 150. We discussed the risks of elevated blood sugars in the postop period including delayed wound healing and increased risk of infection. (added to discharge instructions) COPD without exacerbation -Resume home inhaler regimen on discharge Hypertension, controlled -Continue current medications Obstructive sleep apnea -Patient noncompliant with CPAP. Patient is medically optimized for discharge at the discretion of orthopedic surgery.
[2019-04-29 11:15] LABS: Glucose,Whole Blood 162 mg/dL (75-99)
== END 2019-04-29 13:08 | disposition home health service (06) | DRG 470 ==
LOC: 4SSUR 17:19
PROVIDERS: ADMIT Orthopaedic Surgery; ATTEND Orthopaedic Surgery
PROC: 0SRC069 Replacement of Right Knee Joint with Oxidized Zirconium on Polyethylene Synthetic Substitute, Cemented, Open Approach (ICD-10-PCS; principal; 2019-04-28 14:35)
DX: M17.11 Unilateral primary osteoarthritis, right knee (principal); Z68.41 Body mass index [BMI] 40.0-44.9, adult; E11.65 Type 2 diabetes mellitus with hyperglycemia; J44.9 Chronic obstructive pulmonary disease, unspecified; I10 Essential (primary) hypertension; E78.5 Hyperlipidemia, unspecified; E66.9 Obesity, unspecified; G47.33 Obstructive sleep apnea (adult) (pediatric); K21.9 Gastro-esophageal reflux disease without esophagitis; Z96.652 Presence of left artificial knee joint; N40.0 Benign prostatic hyperplasia without lower urinary tract symptoms; Z87.891 Personal history of nicotine dependence; Z79.899 Other long term (current) drug therapy; Z79.4 Long term (current) use of insulin; Z79.82 Long term (current) use of aspirin; I25.2 Old myocardial infarction; Z82.49 Family history of ischemic heart disease and other diseases of the circulatory system; Z83.3 Family history of diabetes mellitus; Z91.19 Patient's noncompliance with other medical treatment and regimen; Z95.5 Presence of coronary angioplasty implant and graft; Z99.89 Dependence on other enabling machines and devices; Z98.890 Other specified postprocedural states; Z91.040 Latex allergy status; Z88.5 Allergy status to narcotic agent; Z91.09 Other allergy status, other than to drugs and biological substances
CPT/HCPCS: 80048; 85025; 88300

== ENCOUNTER → 2020-05-26 | Outpatient (CLI) | payer BC ==
--- NOTE | 2020-06-01 10:12 | P.ARTDOP ---
Arterial Doppler LOWER EXTREMITY ARTERIAL DOPPLER: DATE OF SERVICE: 05/26/2020 Reason for study: Bilateral toe discoloration. Doppler waveforms: Multiphasic bilaterally throughout. Pulse volume recording: Mild distal blunting. Pressure gradients: None. Ankle-brachial indices: Cannot occlude. Toe brachial indices: 1.03 on the right, 1 on the left Impression: Normal study. Suspect nonhemodynamically significant calcific wall disease..
== END | disposition home or self-care (01) ==
LOC: RADUSWWP 07:29
PROVIDERS: ATTEND Family Medicine
DX: I73.9 Peripheral vascular disease, unspecified (principal)
CPT/HCPCS: 93923

== ENCOUNTER → 2020-12-08 | Outpatient (CLI) | payer BC ==
--- NOTE | 2020-12-08 12:03 | US ---
EXAMINATION TYPE: US carotid duplex BILAT DATE OF EXAM: 12/08/2020 COMPARISON: NONE CLINICAL HISTORY: R42 Dizziness and giddiness. Patient stated loses his balance when stands up. EXAM MEASUREMENTS: RIGHT: Peak Systolic Velocity (PSV) cm/sec ----- Right CCA: 47.9 ----- Right ICA: 64.9 ----- Right ECA: 79.1 ICA/CCA ratio: 1.4 RIGHT: End Diastole cm/sec ----- Right CCA: 12.9 ----- Right ICA: 25.2 ----- Right ECA: 10.9 LEFT: Peak Systolic Velocity (PSV) cm/sec ----- Left CCA: 65.6 ----- Left ICA: 57.9 ----- Left ECA: 82.9 ICA/CCA ratio: 0.9 LEFT: End Diastole cm/sec ----- Left CCA: 15.0 ----- Left ICA: 15.0 ----- Left ECA: 12.1 VERTEBRALS (direction of flow): Right Vertebral: Antegrade Left Vertebral: Antegrade Rhythm: Normal Mild to moderate mixed plaque is imaged at bilateral carotid bifurcation on grayscale images, but PSV is wnl bilaterally. IMPRESSION: Mild to moderate atherosclerotic changes, no hemodynamically significant stenosis seen i n either internal carotid artery . Criteria for Assigning % of Stenosis / Diameter reduction (Estimation based on the indirect measurements of the internal carotid artery velocities (ICA PSV). 1. Normal (no stenosis)=ICA PSV < 125 cm/s: ratio < 2.0: ICA EDV<40 cm/s. 2. Less than 50% stenosis=ICA PSV < 125 cm/s: ratio < 2.0: ICA EDV<40 cm/s. 3. 50 to 69% stenosis=ICA PSV of 125 to 230 cm/s: ration 2.0 ? 4.0: ICA EDV 40-100 cm/s. 4. Greater than 70% stenosis to near occlusion= ICA PSV > 230 cm/s: ratio > 4.0: ICA EDV > 100 cm/s. 5. Near occlusion= ICA PSV velocities may be low or undetectable: variable ratio and ICA EDV. 6. Total occlusion=unable to detect flow.
== END | disposition home or self-care (01) ==
LOC: RADUSWWP 10:48
PROVIDERS: ATTEND Family Medicine
DX: I65.23 Occlusion and stenosis of bilateral carotid arteries (principal)
CPT/HCPCS: 93880

== ENCOUNTER 2021-12-15 17:15 | Emergency (ER) | payer BC ==
[2021-12-15 17:40] VITALS: RESP 20; TEMP 98.1
--- NOTE | 2021-12-15 18:19 | ED ---
General Adult HPI - General Chief complaint: Urogenital Stated complaint: catheter plugged Time Seen by Provider: 12/15/21 18:05 Source: patient, family, RN notes reviewed, old records reviewed Mode of arrival: ambulatory Limitations: no limitations - History of Present Illness Initial comments: 66-year-old male, alert and oriented 4, presents to the emergency room with family member complaining of his and indwelling Juarez catheter not draining. He has increased abdominal pain 10 out of 10. Patient has an enlarged prostate and a catheter was placed in November. He is scheduled for surgery in January. He is a patient of Dr. French. -: days(s) (1) Location: pelvis (bladder) Severity scale (1-10): 10 Consistency: now resolved Associated Symptoms: other (juarez catheter not draining) - Related Data Home Medications Medication Instructions Recorded Confirmed Atorvastatin [Lipitor] 20 mg PO 02/04/14 04/28/19 Doxazosin [Cardura] 4 mg PO 02/04/14 04/28/19 Ezetimibe [Zetia] 10 mg PO [facility] 02/04/14 04/28/19 Finasteride 5 mg PO 02/04/14 04/28/19 Insulin Glargine [Lantus Vial] 62 units SQ 02/04/14 04/28/19 Metoprolol Tartrate [Lopressor] 50 mg PO BID 02/04/14 04/28/19 Multivitamin [Men's Multi-Vitamin] 1 tab PO [facility] 02/04/14 04/28/19 Propafenone HCl [Rythmol] 225 mg PO BID 02/04/14 04/28/19 lisinopriL [Zestril] 5 mg PO [facility] 02/04/14 04/28/19 Aspirin 325 mg PO 07/21/15 04/28/19 [place]-3 Fatty Acids/Fish Oil [Fish 1 cap PO BID 07/21/15 04/28/19 Oil 1,000 mg Softgel] Albuterol Inhaler (Mhu) [Ventolin 1 - 2 puff INHALATION RT-Q6H PRN 07/26/15 Hfa Inhaler (Mhu)] Albuterol Nebulized [Ventolin 2.5 mg INHALATION RT-QID PRN 07/26/15 04/28/19 Nebulized] Cholecalciferol (Vitamin D3) 10,000 unit PO DAILY 07/26/15 04/28/19 [Vitamin D3] ALPRAZolam [Xanax] 0.5 mg PO BID PRN 11/16/16 04/28/19 Ascorbic Acid [Vitamin C] 500 mg PO DAILY 11/16/16 04/28/19 Insulin Aspart [NovoLOG Flexpen] 26 units SQ W/BRKFST 11/16/16 04/28/19 Insulin Aspart [NovoLOG Flexpen] 28 units SQ W/LUNCH 11/16/16 04/28/19 Insulin Aspart [NovoLOG Flexpen] 30 units SQ W/SUPPER 11/16/16 04/28/19 Fluticasone/Salmeterol [Advair 1 puff INHALATION RT-BID 06/24/18 04/28/19 100-50 Diskus] Gabapentin [Neurontin] 300 mg PO TID 12/02/18 04/28/19 HYDROcodone/APAP 10-325MG [[place] 1 tab PO DAILY PRN 12/02/18 04/28/19 10-325] Previous Rx's Medication Instructions Recorded Aspirin 325 mg PO BID #60 tab 04/29/19 HYDROcodone/APAP 5-325MG [[place] 1 - 2 tab PO Q6HR PRN #56 tab 04/29/19 5-325] Sennosides [Senokot] 1 tab PO BID #60 tablet 04/29/19 Cephalexin [Keflex] 500 mg PO Q6HR #40 cap 12/15/21 Allergies Allergy/AdvReac Type Severity Reaction Status Date / Time adhesive Allergy SKIN PEEL, Verified 12/15/21 17:35 BLISTERS(states "paper tape is ok" latex Allergy Rash/Hives Verified 12/15/21 17:35 codeine AdvReac SEVERE Verified 12/15/21 17:35 HEADACHE Review of Systems ROS Statement: Those systems with pertinent positive or pertinent negative responses have been documented in the HPI. ROS Other: All systems not noted in ROS Statement are negative. Past Medical History Past Medical History: COPD, Diabetes Mellitus, GERD/Reflux, Hyperlipidemia, Myocardial Infarction ([place]), Prostate Disorder, Sleep Apnea/CPAP/BIPAP Additional Past Medical History / Comment(s): "irregular heart beat", hy perkeratosis hands and feet, enlarged prostate,no cpap Last Myocardial Infarction Date:: 2005 History of Any Multi-Drug Resistant Organisms: None Reported Past Surgical History: Heart Catheterization With Stent, Orthopedic Surgery Additional Past Surgical History / Comment(s): left knee replacement, rt knee surgery, total 3 cardiac stents, COLONOSCOPY Past Anesthesia/Blood Transfusion Reactions: No Reported Reaction Additional Past Anesthesia/Blood Transfusion Reaction / Comment(s): no hx blood transfusion Date of Last Stent Placement:: NOV 2005 Past Psychological History: Anxiety, Depression Smoking Status: Never smoker Past Alcohol Use History: None Reported Past Drug Use History: None Reported - Past Family History Mother Family Medical History: Cancer Additional Family Medical History / Comment(s): breast Father Family Medical History: Diabetes Mellitus, Myocardial Infarction ([place]) Additional Family Medical History / Comment(s): CABG General Exam Limitations: no limitations General appearance: alert, in no apparent distress Head exam: Present: atraumatic, normocephalic, normal inspection Eye exam: Absent: scleral icterus, conjunctival injection, periorbital swelling, periorbital tenderness Neck exam: Present: normal inspection, full ROM. Absent: meningismus Respiratory exam: Present: normal lung sounds bilaterally. Absent: respiratory distress, wheezes, rales, rhonchi, stridor, chest wall tenderness, decreased breath sounds Cardiovascular Exam: Present: bradycardia GI/Abdominal exam: Present: distended, tenderness (over bladder). Absent: gua rding, rebound, rigid exam: Present: circumcision. Absent: urethral discharge External exam: Absent: erythema, swelling, lesions Extremities exam: Present: normal capillary refill Back exam: Present: normal inspection. Absent: tenderness, CVA tenderness (R), CVA tenderness (L), rash noted Neurological exam: Present: alert, oriented X3 Psychiatric exam: Present: normal affect, normal mood Skin exam: Present: warm, dry, normal color. Absent: rash, cyanosis, diaphoretic Course Vital Signs 12/15/21 17:35 Temperature 98.1 F Pulse Rate 57 L Respiratory 20 Rate Blood Pressure 146/63 O2 Sat by Pulse 96 Oximetry Medical Decision Making - Medical Decision Making 66-year-old male presents to the emergency room with complaints of Juarez catheter not draining today with bladder distention and spasms. Juarez catheter was changed by the nurse and 1400 mL of yellow urine returned. Patient has complete relief of bladder distention and spasms. The Juarez catheter tubing was thick with what appears to be laith. Urinalysis shows 4+ glucose, small blood, 51 WBCs and few bacteria. He will be treated for urinary tract infection with keflex and given diflucan in the ER. I directed him to follow-up with his urologist for urinary tract infection. I also advised him to follow up with his primary care doctor for his elevated blood sugars. Patient is agreeable to this plan of care Case discussed with Dr. Mina. - Lab Data Lab Results 12/15/21 Range/Units 18:17 Urine Color Light Yellow Urine Appearance Clear (Clear) Urine pH 5.0 (5.0-8.0) Ur Specific [place] 1.026 (1.001-1.035) Urine Protein Negative (Negative) Urine Glucose (UA) 4+ H (Negative) Urine Ketones Negative (Negative) Urine Blood Small H (Negative) Urine Nitrite Positive (Negative) Urine Bilirubin Negative (Negative) Urine Urobilinogen <2.0 (<2.0) mg/dL Ur Leukocyte Esterase Moderate H (Negative) Urine RBC 9 H (0-5) /hpf Urine WBC 51 H (0-5) /hpf Ur Squamous Epith Cells <1 (0-4) /hpf Urine Bacteria Few H (None) /hpf Hyaline Casts 1 (0-2) /lpf Urine Mucus Rare H (None) /hpf Disposition Clinical Impression: Juarez catheter problem, UTI (urinary tract infection) Disposition: HOME SELF-CARE Condition: Good Instructions (If sedation given, give patient instructions): Urinary Tract Infection in Men (ED) Additional Instructions: Increase your fluid intake. Take the antibiotics as prescribed. Follow-up with your urologist on Saturday. Talk to your primary care doctor about your elevated blood sugar levels. Return to the emergency room if any new or concerning symptoms including fever, nausea, vomiting or back pain. Prescriptions: Cephalexin [Keflex] 500 mg PO Q6HR #40 cap Is patient prescribed a controlled substance at d/c from ED?: No Referrals: Greg Cummings MD [Primary Care Provider] - 1-2 days Daryl French MD [STAFF PHYSICIAN] - 1-2 days Time of Disposition: 18:53
[2021-12-15 18:27] LABS: Appearance,Urine Clear (Clear); Bacteria,Urine Few /hpf; Bilirubin,Urine Negative (Negative); Blood,Urine Small (Negative); Color,Urine Light Yellow; Glucose,Urine (UA) 4+ (Negative); Hyaline Casts,Urine 1 /lpf (0-2); Ketones,Urine Negative (Negative); Leukocyte Esterase,Urine Moderate (Negative); Mucus,Urine Rare /hpf; Nitrite,Urine Positive (Negative); Protein,Urine Negative (Negative); RBC,Urine 9 /hpf (0-5); Specific Gravity,Urine 1.026 (1.001-1.035); Squamous Epithelial Cell,Urine <1 /hpf (0-4); Urobilinogen,Urine <2.0 mg/dL (<2.0); WBC,Urine 51 /hpf (0-5)
[2021-12-15] MEDS ORDERED: CEPHALEXIN 500 MG CAP PO STA (18:51)
[2021-12-15] MEDS ORDERED: FLUCONAZOLE 150 MG TAB PO STA (18:51)
[2021-12-15 19:07] VITALS: BP 144/74; PULSE 70
== END 2021-12-15 19:07 | disposition home or self-care (01) ==
LOC: EC 17:15
DX: N39.0 Urinary tract infection, site not specified (principal); T83.098A Other mechanical complication of other urinary catheter, initial encounter; E11.9 Type 2 diabetes mellitus without complications; J44.9 Chronic obstructive pulmonary disease, unspecified; I25.2 Old myocardial infarction; K21.9 Gastro-esophageal reflux disease without esophagitis; E78.5 Hyperlipidemia, unspecified; F32.A Depression, unspecified; F41.9 Anxiety disorder, unspecified; Z79.4 Long term (current) use of insulin; Z79.51 Long term (current) use of inhaled steroids; Z79.82 Long term (current) use of aspirin; Z79.899 Other long term (current) drug therapy
CPT/HCPCS: 81001; 87086; 99284

== ENCOUNTER → 2021-12-19 | Outpatient (CLI) | payer BC ==
--- NOTE | 2021-12-19 14:06 | XR ---
EXAMINATION TYPE: XR chest 2V DATE OF EXAM: 12/19/2021 COMPARISON: Chest x-ray June 15, 2016 HISTORY: Presurgical study. History of hypertension. TECHNIQUE: Frontal and lateral views of the chest are obtained. FINDINGS: There is no suspicious focal air space opacity, pleural effusion, or pneumothorax seen. T he cardiac silhouette size remains within normal limits. The osseous structures are intact. IMPRESSION: No acute cardiopulmonary process.
[2021-12-19 19:43] LABS: Basophils # (A) 0.09 X 10*3/uL (0.00-0.10); Basophils % (A) 1.1 %; Eosinophils # (A) 0.47 X 10*3/uL (0.04-0.35); Eosinophils % (A) 5.7 %; HCT 48.6 % (39.6-50.0); HGB 14.8 g/dL (13.0-17.0); Immature Grans, Automated 1.2 %; Lymphocytes # (A) 2.12 X 10*3/uL (0.90-5.00); Lymphocytes % (A) 25.7 %; MCH 28.2 pg (27.0-32.0); MCHC 30.5 g/dL (32.0-37.0); MCV 92.6 fL (80.0-97.0); Mean Platelet Volume 9.6 fL (9.5-12.2); Monocytes # (A) 0.41 X 10*3/uL (0.20-1.00); NRBC Per 100 WBC 0 /100 WBCS (0.0-0.0); Neutrophils # (A) 5.06 X 10*3/uL (1.80-7.70); Neutrophils % (A) 61.3 %; Platelet Count 290 X 10*3/uL (140-440); RBC 5.25 X 10*6/uL (4.40-5.60); WBC 8.25 X 10*3/uL (4.50-10.00)
[2021-12-19 21:53] LABS: African American GFR (CKD) 80.9 (60.0-200.0); Anion Gap 13.4 mmol/L (10.00-18.00); BUN/Creat Ratio 21.17 Ratio (12.00-20.00); Blood Urea Nitrogen 23.5 mg/dL (9.0-27.0); Carbon Dioxide 17.8 mmol/L (20.0-27.5); Non-African American GFR(CKD) 69.8 (60.0-200.0); Potassium 4.1 mmol/L (3.5-5.5)
[2021-12-19 23:19] LABS: Appearance,Urine Cloudy (Clear); Bilirubin,Urine Negative (Negative); Blood,Urine Moderate (Negative); Color,Urine Yellow (Yellow); Ketones,Urine Negative (Negative); Leukocyte Esterase,Urine Moderate (Negative); Nitrite,Urine Negative (Negative); Protein,Urine 30 (Negative); Urobilinogen,Urine 0.2 (0.2,1.0)
[2021-12-19 23:42] LABS: Bacteria,Urine None Seen /HPF (None Seen); WBC,Urine >100 /HPF (0-5)
== END | disposition home or self-care (01) ==
LOC: LABPAT 10:13
PROVIDERS: ATTEND Urology
DX: Z01.812 Encounter for preprocedural laboratory examination (principal); N40.1 Benign prostatic hyperplasia with lower urinary tract symptoms; I10 Essential (primary) hypertension
CPT/HCPCS: 71046; 80048; 81001; 85025; 87086

== ENCOUNTER 2021-12-22 22:39 | Emergency (ER) | payer BC ==
[2021-12-22 23:52] VITALS: BP 168/82; PULSE 50; RESP 18; TEMP 98
--- NOTE | 2021-12-23 00:13 | ED ---
Male Urogenital HPI - General Chief complaint: Urogenital Stated complaint: catheter blocked Time Seen by Provider: 12/23/21 00:05 Source: patient, RN notes reviewed, old records reviewed Mode of arrival: wheelchair Limitations: no limitations - History of Present Illness Initial comments: This is a 66-year-old male to the emergency department for evaluation. She has current indwelling Clarke with it is not currently working. Patient does have severe abdominal pain and no other new complaints MD Complaint: testicle pain (Inability to urinate) -: hour(s) Location: penis, abdomen Radiation: none Severity: severe Severity scale (1-10): 9 Quality: aching, sharp Consistency: constant Improves with: none Worsens with: none indwelling catheter Reports: urinary retention - Related Data Home Medications Medication Instructions Recorded Confirmed Atorvastatin [Lipitor] 20 mg PO 02/04/14 04/28/19 Doxazosin [Cardura] 4 mg PO 02/04/14 04/28/19 Ezetimibe [Zetia] 10 mg PO [facility] 02/04/14 04/28/19 Finasteride 5 mg PO 02/04/14 04/28/19 Insulin Glargine [Lantus Vial] 62 units SQ 02/04/14 04/28/19 Metoprolol Tartrate [Lopressor] 50 mg PO BID 02/04/14 04/28/19 Multivitamin [Men's Multi-Vitamin] 1 tab PO [facility] 02/04/14 04/28/19 Propafenone HCl [Rythmol] 225 mg PO BID 02/04/14 04/28/19 lisinopriL [Zestril] 5 mg PO [facility] 02/04/14 04/28/19 Aspirin 325 mg PO 07/21/15 04/28/19 [place]-3 Fatty Acids/Fish Oil [Fish 1 cap PO BID 07/21/15 04/28/19 Oil 1,000 mg Softgel] Albuterol Inhaler (Mhu) [Ventolin 1 - 2 puff INHALATION RT-Q6H PRN 07/26/15 04/28/19 Hfa Inhaler (Mhu)] Albuterol Nebulized [Ventolin 2.5 mg INHALATION RT-QID PRN 07/26/15 04/28/19 Nebulized] Cholecalciferol (Vitamin D3) 10,000 unit PO DAILY 07/26/15 04/28/19 [Vitamin D3] ALPRAZolam [Xanax] 0.5 mg PO BID PRN 11/16/16 04/28/19 Ascorbic Acid [Vitamin C] 500 mg PO DAILY 11/16/16 04/28/19 Insulin Aspart [NovoLOG Flexpen] 26 units SQ W/BRKFST 11/16/16 04/28/19 Insulin Aspart [NovoLOG Flexpen] 28 units SQ W/LUNCH 11/16/16 04/28/19 Insulin Aspart [NovoLOG Flexpen] 30 units SQ W/SUPPER 11/16/16 04/28/19 Fluticasone/Salmeterol [Advair 1 puff INHALATION RT-BID 06/24/18 04/28/19 100-50 Diskus] Gabapentin [Neurontin] 300 mg PO TID 12/02/18 04/28/19 HYDROcodone/APAP 10-325MG [[place] 1 tab PO DAILY PRN 12/02/18 04/28/19 10-325] Previous Rx's Medication Instructions Recorded Aspirin 325 mg PO BID #60 tab 04/29/19 HYDROcodone/APAP 5-325MG [[place] 1 - 2 tab PO Q6HR PRN #56 tab 04/29/19 5-325] Sennosides [Senokot] 1 tab PO BID #60 tablet 04/29/19 Cephalexin [Keflex] 500 mg PO Q6HR #40 cap 12/15/21 Allergies Allergy/AdvReac Type Severity Reaction Status Date / Time adhesive Allergy SKIN PEEL, Verified 12/22/21 23:52 BLISTERS(states "paper tape is ok" latex Allergy Rash/Hives Verified 12/22/21 23:52 codeine AdvReac SEVERE Verified 12/22/21 23:52 HEADACHE Review of Systems ROS Statement: Those systems with pertinent positive or pertinent negative responses have been documented in the HPI. ROS Other: All systems not noted in ROS Statement are negative. Past Medical History Past Medical History: COPD, Diabetes Mellitus, GERD/Reflux, Hyperlipidemia, Myocardial Infarction ([place]), Prostate Disorder, Sleep Apnea/CPAP/BIPAP Additional Past Medical History / Comment(s): "irregular heart beat", hyperkeratosis hands and feet, enlarged prostate,no cpap Last Myocardial Infarction Date:: 2005 History of Any Multi-Drug Resistant Organisms: None Reported Past Surgical History: Heart Catheterization With Stent, Orthopedic Surgery Additional Past Surgical History / Comment(s): left knee replacement, rt knee surgery, total 3 cardiac stents, COLONOSCOPY Past Anesthesia/Blood Transfusion Reactions: No Reported Reaction Additional Past Anesthesia/Blood Transfusion Reaction / Comment(s): no hx blood transfusion Date of Last Stent Placement:: NOV 2005 Past Psychological History: Anxiety, Depression Smoking Status: Never smoker Past Alcohol Use History: None Reported Past Drug Use History: None Reported - Past Family History Mother Family Medical History: Cancer Additional Family Medical History / Comment(s): breast Father Family Medical History: Diabetes Mellitus, Myocardial Infarction ([place]) Additional Family Medical History / Comment(s): CABG General Exam General appearance: anxious Head exam: Present: atraumatic, normocephalic, normal inspection Eye exam: Present: normal appearance, PERRL, EOMI. Absent: scleral icterus, conjunctival injection, periorbital swelling ENT exam: Present: normal exam, mucous membranes moist Neck exam: Present: normal inspection. Absent: tenderness, meningismus, lymphadenopathy Respiratory exam: Present: normal lung sounds bilaterally. Absent: respiratory distress, wheezes, rales, rhonchi, stridor Cardiovascular Exam: Present: regular rate, normal rhythm, normal heart sounds. Absent: systolic murmur, diastolic murmur, rubs, gallop, clicks GI/Abdominal exam: Present: soft, normal bowel sounds. Absent: distended, tenderness, guarding, rebound, rigid Extremities exam: Present: normal inspection, full ROM, normal capillary refill. Absent: tenderness, pedal edema, joint swelling, calf tenderness Back exam: Present: normal inspection Neurological exam: Present: alert, oriented X3, CN II-XII intact Psychiatric exam: Present: normal affect, normal mood Skin exam: Present: warm, dry, intact, normal color. Absent: rash Course Vital Signs 12/22/21 23:49 Temperature 98 F Pulse Rate 50 L Respiratory 18 Rate Blood Pressure 168/82 O2 Sat by Pulse 98 Oximetry - Reevaluation(s) Reevaluation #1: 12/23/21 Medical records reviewed Patient informed results and questions answered Patient symptoms are improved here in the emergency department Medical Decision Making - Medical Decision Making 86 male to the emergency department for evaluation of indwelling Clarke catheter. Patient has no output currently and catheter catheter is replaced good output and can be discharged home Disposition Clinical Impression: Clarke catheter problem Disposition: HOME SELF-CARE Condition: Good Instructions (If sedation given, give patient instructions): Clarke Catheter Placement and Care (ED) Is patient prescribed a controlled substance at d/c from ED?: No Referrals: Greg Cummings MD [Primary Care Provider] - 1-2 days
== END 2021-12-23 00:25 | disposition home or self-care (01) ==
LOC: EC 22:39
DX: T83.091A Other mechanical complication of indwelling urethral catheter, initial encounter (principal); E11.9 Type 2 diabetes mellitus without complications; J44.9 Chronic obstructive pulmonary disease, unspecified; K21.9 Gastro-esophageal reflux disease without esophagitis; E78.5 Hyperlipidemia, unspecified; I25.2 Old myocardial infarction; F32.A Depression, unspecified; F41.9 Anxiety disorder, unspecified; Z79.4 Long term (current) use of insulin; Z79.51 Long term (current) use of inhaled steroids; Z79.82 Long term (current) use of aspirin; Z79.899 Other long term (current) drug therapy
CPT/HCPCS: 51702; 99283

== ENCOUNTER 2024-04-14 16:28 | Emergency (ER) | payer BC ==
[2024-04-14 17:12] VITALS: RESP 18
--- NOTE | 2024-04-14 19:27 | ED ---
Back Pain HPI <Daly Mina Vanessa - Last Filed: 04/14/24 22:43> - General Source: patient, RN notes reviewed, old records reviewed Limitations: no limitations - History of Present Illness MD Complaint: back pain, other (0) Similar Symptoms Previously: Yes Place: home Radiation: none Severity: mild Severity scale (1-10): 7 Quality: sharp, stabbing, crushing Consistency: constant Improves With: none Worsens With: none Context: while lifting, turning/twisting Treatments Prior to Arrival: other (0) <Raffi Mejia - Last Filed: 04/21/24 23:06> - General Chief Complaint: Extremity Injury, Upper Stated Complaint: muscle cramps Time Seen by Provider: 04/14/24 19:11 - History of Present Illness Initial Comments: This is a 68-year-old male to the ER for evaluation of back pain severe shoulder pain back pain pain from elbow to elbow severe going into his upper back lower neck across his chest. Patient states he has had this pain getting worse worse for days to weeks now. He has not seen anyone for this painsince. (Raffi Mejia) - Related Data Home Medications Medication Instructions Recorded Confirmed Finasteride 5 mg PO HS 02/04/14 01/10/22 Insulin Glargine [Lantus Vial] 62 units SQ HS 02/04/14 01/10/22 Metoprolol Tartrate [Lopressor] 50 mg PO DAILY 02/04/14 01/10/22 Multivitamin [Men's Multi-Vitamin] 1 tab PO QAM 02/04/14 01/10/22 Propafenone HCl [Rythmol] 225 mg PO DAILY 02/04/14 01/10/22 Aspirin 325 mg PO HS 07/21/15 01/10/22 [place]-3 Fatty Acids/Fish Oil [Fish 1 cap PO BID 07/21/15 01/10/22 Oil 1,000 mg Softgel] Albuterol Inhaler [Ventolin Hfa 1 - 2 puff INHALATION RT-Q6H PRN 07/26/15 01/10/22 Inhaler] Albuterol Nebulized [Ventolin 2.5 mg INHALATION RT-QID PRN 07/26/15 01/10/22 Nebulized] Insulin Aspart [NovoLOG Flexpen] 26 units SQ W/BRKFST 11/16/16 01/10/22 Insulin Aspart [NovoLOG Flexpen] 28 units SQ W/LUNCH 11/16/16 01/10/22 Insulin Aspart [NovoLOG Flexpen] 30 units SQ W/SUPPER 11/16/16 01/10/22 Gabapentin [Neurontin] 300 mg PO TID 12/02/18 01/10/22 Atorvastatin Calcium [Lipitor] 20 mg PO HS 01/10/22 01/10/22 Cholecalciferol (Vitamin D3) 75 mcg PO DAILY 01/10/22 01/10/22 [Vitamin D3 (3000 Iu)] Naproxen Sodium [Aleve] 440 mg PO Q12HR 01/10/22 01/10/22 Nitroglycerin Sl Tabs [Nitrostat] 0.4 mg SUBLINGUAL Q5M PRN 01/10/22 01/10/22 ALPRAZolam [Xanax] 0.5 mg PO DAILY 01/11/22 01/11/22 Dapagliflozin Propanediol [Farxiga] 10 mg PO DAILY 01/11/22 01/11/22 Fluticasone Propion/Salmeterol 1 diskus INHALATION DAILY 01/11/22 01/11/22 [Advair 100-50 Diskus] Sertraline [Zoloft] 100 mg PO BID 01/11/22 01/11/22 Previous Rx's Medication Instructions Recorded HYDROcodone/APAP 7.5-325MG [[place] 1 tab PO Q4HR PRN #18 tab 04/14/24 7.5-325] Allergies Allergy/AdvReac Type Severity Reaction Status Date / Time adhesive Allergy SKIN PEEL, Verified 04/14/24 17:12 BLISTERS(states "paper tape is ok" latex Allergy Rash/Hives Verified 04/14/24 17:12 codeine AdvReac SEVERE Verified 04/14/24 17:12 HEADACHE Review of Systems ROS Other: All systems not noted in ROS Statement are negative. <Daly Mina A - Last Filed: 04/14/24 22:43> ROS Other: All systems not noted in ROS Statement are negative. <Raffi Mejia - Last Filed: 04/21/24 23:06> ROS Statement: Those systems with pertinent positive or pertinent negative responses have been documented in the HPI. Past Medical History Past Medical History: COPD, Diabetes Mellitus, GERD/Reflux, Hyperlipidemia, Myocardial Infarction (ND), Prostate Disorder, Sleep Apnea/CPAP/BIPAP Additional Past Medical History / Comment(s): "irregular heart beat", hyperkeratosis hands and feet, enlarged prostate,no cpap. arthritis Last Myocardial Infarction Date:: 2005 History of Any Multi-Drug Resistant Organisms: None Reported Past Surgical History: Heart Catheterization With Stent, Orthopedic Surgery Additional Past Surgical History / Comment(s): left knee replacement, rt knee surgery, total 3 cardiac stents, COLONOSCOPY Past Anesthesia/Blood Transfusion Reactions: No Reported Reaction Additional Past Anesthesia/Blood Transfusion Reaction / Comment(s): no hx blood transfusion Date of Last Stent Placement:: NOV 2005 Past Psychological History: Anxiety, Depression Smoking Status: Never smoker Past Alcohol Use History: None Reported Past Drug Use History: None Reported - Past Family History Mother Family Medical History: Cancer Additional Family Medical History / Comment(s): breast Father Family Medical History: Diabetes Mellitus, Myocardial Infarction (ND) Additional Family Medical History / Comment(s): CABG <Raffi Mejia - Last Filed: 04/21/24 23:06> General Exam Limitations: no limitations General appearance: alert, in no apparent distress Head exam: Present: atraumatic, normocephalic, normal inspection Eye exam: Present: normal appearance, PERRL, EOMI. Absent: scleral icterus, conjunctival injection, periorbital swelling ENT exam: Present: normal exam, mucous membranes moist Neck exam: Present: normal inspection. Absent: tenderness, meningismus, lymphadenopathy Respiratory exam: Present: normal lung sounds bilaterally. Absent: respiratory distress, wheezes, rales, rhonchi, stridor Cardiovascular Exam: Present: regular rate, normal rhythm, normal heart sounds. Absent: systolic murmur, diastolic murmur, rubs, gallop, clicks GI/Abdominal exam: Present: soft, normal bowel sounds. Absent: distended, tenderness, guarding, rebound, rigid Extremities exam: Present: normal inspection, full ROM, normal capillary refill. Absent: tenderness, pedal edema, joint swelling, calf tenderness Back exam: Present: normal inspection Neurological exam: Present: alert, oriented X3, CN II-XII intact Psychiatric exam: Present: normal affect, normal mood Skin exam: Present: warm, dry, intact, normal color. Absent: rash <Raffi Mejia - Last Filed: 04/21/24 23:06> Course <Raffi Mejia - Last Filed: 04/21/24 23:06> Vital Signs 04/14/24 04/14/24 17:09 23:37 Temperature 97.6 F 98 F Pulse Rate 88 95 Respiratory 18 18 Rate Blood Pressure 154/86 151/83 O2 Sat by Pulse 96 96 Oximetry - Reevaluation(s) Reevaluation #1: 04/14/24 19:24 Medical records reviewed (Raffi Mejia) Reevaluation #2: 04/14/24 19:26 Patient's pain is unchanged (Raffi Mejia) Reevaluation #3: Patient informed of results questions answered (Raffi Mejia) Reevaluation #4: Was pt. sent in by a medical professional or institution (, PA, BUSINESS RESILIENCY MANAGER, urgent care, hospital, or fci...) When possible be specific @ -no Did you speak to anyone other than the patient for history (EMS, parent, family, police, friend...)? What history was obtained from this source @ -no Did you review nursing and triage notes (agree or disagree)? Why? @ -agree Are old charts reviewed (outside hosp., previous admission, EMS record, old EKG, old radiological studies, urgent care reports/EKG's, fci records)? Report findings @ -yes Differential Diagnosis (chest pain, altered mental status, abdominal pain women, abdominal pain men, vaginal bleeding, weakness, fever, dyspnea, syncope, headache, dizziness, GI bleed, back pain, seizure, CVA, palpatations, mental health, musculoskeletal)? @ -prior EKG interpreted by me (3pts min.). @ -yes X-rays interpreted by me (1pt min.). @ -yes negative for acute disease CT interpreted by me (1pt min.). @ -Yes negative for acute disease U/S interpreted by me (1pt. min.). @ -no What testing was considered but not performed or refused? (CT, X-rays, U/S, labs)? Why? @ -none What meds were considered but not given or refused? Why? @ -none Did you discuss the management of the patient with other professionals (professionals i.e. , PA, BUSINESS RESILIENCY MANAGER, lab, RT, psych nurse, director social service, nickel operator, teacher, financial administration officer, case managers)? Give summary @ -no Was smoking cessation discussed for >3mins.? @ -no Was critical care preformed (if so, how long)? @ -no Were there social determinants of health that impacted care today? How? (Homelessness, low income, unemployed, alcoholism, drug addiction, transportation, low edu. Level, literacy, decrease access to med. care, long-term, rehab)? @ -none Was there de-escalation of care discussed even if they declined (Discuss DNR or withdrawal of care, Hospice)? DNR status @ -no What co-morbidities impacted this encounter? (DM, HTN, Smoking, COPD, CAD, Cancer, CVA, ARF, Chemo, Hep., AIDS, mental health diagnosis, sleep apnea, morbi d obesity)? @ -none Was patient admitted / discharged? Hospital course, mention meds given and rout e, prescriptions, significant lab abnormalities, going to OR and other pertinent info. @ - 68 male with back pain shoulder pain neck pain here for pain control, pain well-controlled and can be discharged Discharge Undiagnosed new problem with uncertain prognosis? @ -no Drug Therapy requiring intensive monitoring for toxicity (Heparin, Nitro, Insulin, Cardizem)? @ -no Were any procedures done? @ -no Diagnosis/symptom? @ -Chronic pain Acute, or Chronic, or Acute on Chronic? @ -Acute Uncomplicated (without systemic symptoms) or Complicated (systemic symptoms)? @ -Complicated Side effects of treatment? @ -no Exacerbation, Progression, or Severe Exacerbation? @ -exacerbation Poses a threat to life or bodily function? How? (Chest pain, [place], ND, pneumonia, PE, COPD, DKA, ARF, appy, cholecystitis, CVA, Diverticulitis, Homicidal, Suicidal, threat to staff... and all critical care pts) @ -yes extremes of age (Raffi Mejia) Reevaluation #5: Differential Back Pain: Strain, zoster, cauda equina syndrome, epidural abscess, vertebral osteomye litis, discitis, fracture, subluxation, disc herniation, DJD, spinal stenosis, dissection, AAA, pancreatitis, peptic ulcer disease, pyelonephritis, kidney stone, this is not meant to be an all-inclusive list. Differential Chest Pain: Stable Angina, Unstable Angina, STEMI, NSTEMI Aortic Dissection, Pneumothorax, Musculoskeletal, Esophageal Spasm GERD, Cholecystitis, Pancreatitis, Zoster, this is not meant to be an all-inclusive list. (Raffi Mejia) Medical Decision Making - Lab Data Result diagrams: 04/14/24 19:42 04/14/24 19:42 <Daly Mina - Last Filed: 04/14/24 22:43> - Lab Data Result diagrams: 04/14/24 19:42 04/14/24 19:42 - EKG Data -: EKG Interpreted by Me (EKG is sinus 93 OK 166 QRS 117 QTc 413) - Radiology Data Radiology results: report reviewed (CTA chest negative for PE), image reviewed <Raffi Mejia - Last Filed: 04/21/24 23:06> - Medical Decision Making 68 male with back pain shoulder pain neck pain here for pain control, pain well- controlled and can be discharged (Raffi Mejia) - Lab Data Lab Results 04/14/24 04/14/24 04/14/24 Range/Units 19:42 19:42 19:42 WBC 10.3 (3.8-10.6) k/uL RBC 5.41 (4.30-5.90) m/uL Hgb 15.1 (13.0-17.5) gm/dL Hct 48.4 (39.0-53.0) % MCV 89.4 (80.0-100.0) fL MCH 27.9 (25.0-35.0) pg MCHC 31.2 (31.0-37.0) g/dL RDW 14.9 (11.5-15.5) % Plt Count 294 (150-450) k/uL MPV 7.1 Neutrophils % 72 % Lymphocytes % 18 % Monocytes % 6 % Eosinophils % 2 % Basophils % 1 % Neutrophils # 7.5 (1.3-7.7) k/uL Lymphocytes # 1.9 (1.0-4.8) k/uL Monocytes # 0.6 (0-1.0) k/uL Eosinophils # 0.2 (0-0.7) k/uL Basophils # 0.1 (0-0.2) k/uL PT 9.9 L (10.0-12.5) sec INR 0.9 (<1.2) APTT 26.4 (22.0-30.0) sec D-Dimer 0.33 (<0.60) mg/L FEU Sodium 138 (137-145) mmol/L Potassium 4.6 (3.5-5.1) mmol/L Chloride 103 (98-107) mmol/L Carbon Dioxide 26 (22-30) mmol/L Anion Gap 9 mmol/L BUN 23 H (9-20) mg/dL Creatinine 0.80 (0.66-1.25) mg/dL Est GFR (CKD-EPI)AfAm >90 (>60 ml/min/1.73 sqM) Est GFR (CKD-EPI)NonAf >90 (>60 ml/min/1.73 sqM) Glucose 234 H (74-99) mg/dL Plasma Lactic Acid Cody (0.7-2.0) mmol/L Calcium 10.2 (8.4-10.2) mg/dL Phosphorus 3.6 (2.5-4.5) mg/dL Magnesium 2.2 (1.6-2.3) mg/dL Total Bilirubin 1.0 (0.2-1.3) mg/dL AST 21 (17-59) U/L ALT 21 (4-49) U/L Alkaline Phosphatase 95 (38-126) U/L Troponin I (0.000-0.034) ng/mL NT-Pro-B Natriuret Pep 42 pg/mL Total Protein 7.4 (6.3-8.2) g/dL Albumin 4.2 (3.5-5.0) g/dL 04/14/24 04/14/24 Range/Units 19:42 19:42 WBC (3.8-10.6) k/uL RBC (4.30-5.90) m/uL Hgb (13.0-17.5) gm/dL Hct (39.0-53.0) % MCV (80.0-100.0) fL MCH (25.0-35.0) pg MCHC (31.0-37.0) g/dL RDW (11.5-15.5) % Plt Count (150-450) k/uL MPV Neutrophils % % Lymphocytes % % Monocytes % % Eosinophils % % Basophils % % Neutrophils # (1.3-7.7) k/uL Lymphocytes # (1.0-4.8) k/uL Monocytes # (0-1.0) k/uL Eosinophils # (0-0.7) k/uL Basophils # (0-0.2) k/uL PT (10.0-12.5) sec INR (<1.2) APTT (22.0-30.0) sec D-Dimer (<0.60) mg/L FEU Sodium (137-145) mmol/L Potassium (3.5-5.1) mmol/L Chloride (98-107) mmol/L Carbon Dioxide (22-30) mmol/L Anion Gap mmol/L BUN (9-20) mg/dL Creatinine (0.66-1.25) mg/dL Est GFR (CKD-EPI)AfAm (>60 ml/min/1.73 sqM) Est GFR (CKD-EPI)NonAf (>60 ml/min/1.73 sqM) Glucose (74-99) mg/dL Plasma Lactic Acid [place] 1.9 (0.7-2.0) mmol/L Calcium (8.4-10.2) mg/dL Phosphorus (2.5-4.5) mg/dL Magnesium (1.6-2.3) mg/dL Total Bilirubin (0.2-1.3) mg/dL AST (17-59) U/L ALT (4-49) U/L Alkaline Phosphatase (38-126) U/L Troponin I <0.012 (0.000-0.034) ng/mL NT-Pro-B Natriuret Pep pg/mL Total Protein (6.3-8.2) g/dL Albumin (3.5-5.0) g/dL Disposition Is patient prescribed a controlled substance at d/c from ED?: Yes When asked, does pt state using other controlled substances?: No If prescribed controlled substance>3 days was MAPS reviewed?: Prescribed <3 Days Time of Disposition: 22:48 <Daly Mina - Last Filed: 04/14/24 22:43> Is patient prescribed a controlled substance at d/c from ED?: No <Severiano Mejiaophmil Hernandez - Last Filed: 04/21/24 23:06> Clinical Impression: Back pain, Bilateral shoulder pain, Neck pain Disposition: HOME SELF-CARE Condition: Stable Instructions (If sedation given, give patient instructions): Shoulder Pain (ED) Additional Instructions: Please follow-up with Dr. Wilkes at your scheduled appointment. Alternate taking Motrin 600 mg with the [place] every 4 hours. I recommend an MRI of your neck. Return for any new or worsening symptoms Prescriptions: HYDROcodone/APAP 7.5-325MG [[place] 7.5-325] 1 tab PO Q4HR PRN #18 tab PRN Reason: Pain Referrals: Telly Renae DO [Primary Care Provider] - 1-2 days Sayda Nye MD [Medical Doctor] - 1-2 days
[2024-04-14] MEDS: SODIUM CHLORIDE 0.9% 1,000 ML IV STA (19:50)
[2024-04-14] MEDS: MORPHINE SULFATE 4 MG/ML SYRINGE IV STA (19:51)
[2024-04-14 20:02] LABS: Basophils # (A) 0.1 k/uL (0-0.2); Basophils % (A) 1 %; Eosinophils # (A) 0.2 k/uL (0-0.7); Eosinophils % (A) 2 %; HCT 48.4 % (39.0-53.0); HGB 15.1 gm/dL (13.0-17.5); Lymphocytes # (A) 1.9 k/uL (1.0-4.8); Lymphocytes % (A) 18 %; MCH 27.9 pg (25.0-35.0); MCHC 31.2 g/dL (31.0-37.0); MCV 89.4 fL (80.0-100.0); Mean Platelet Volume 7.1; Monocytes # (A) 0.6 k/uL (0-1.0); Monocytes % (A) 6 %; Neutrophils # (A) 7.5 k/uL (1.3-7.7); Neutrophils % (A) 72 %; Platelet Count 294 k/uL (150-450); RBC 5.41 m/uL (4.30-5.90); RDW 14.9 % (11.5-15.5); WBC 10.3 k/uL (3.8-10.6)
[2024-04-14 20:13] LABS: ALT 21 U/L (4-49); AST 21 U/L (17-59); African American GFR (CKD) >90 (>60 ml/min/1.73 sqM); Albumin 4.2 g/dL (3.5-5.0); Alkaline Phosphatase 95 U/L (38-126); Anion Gap 9 mmol/L; Blood Urea Nitrogen 23 mg/dL (9-20); Calcium 10.2 mg/dL (8.4-10.2); Carbon Dioxide 26 mmol/L (22-30); Chloride 103 mmol/L (98-107); Glucose 234 mg/dL (74-99); Magnesium 2.2 mg/dL (1.6-2.3); Non-African American GFR(CKD) >90 (>60 ml/min/1.73 sqM); Phosphorus 3.6 mg/dL (2.5-4.5); Potassium 4.6 mmol/L (3.5-5.1); Sodium 138 mmol/L (137-145); Total Protein 7.4 g/dL (6.3-8.2)
[2024-04-14 20:16] LABS: INR 0.9 (<1.2)
[2024-04-14 20:17] LABS: Partial Thromboplastin Time 26.4 sec (22.0-30.0); Prothrombin Time 9.9 sec (10.0-12.5)
[2024-04-14 20:21] LABS: NT-Pro-B-Type Natriuretic Pept 42 pg/mL
[2024-04-14] MEDS: IBUPROFEN 600 MG STARTER PACK 4 TAB BTL PO STA (21:49)
--- NOTE | 2024-04-14 21:49 | CT ---
CTA CHEST EXAMINATION TYPE: CT angio chest DATE OF EXAM: 04/14/2024 INDICATION: pain between shoulder blades. neg d dimer. CT DLP: 2209.9 mGycm, Automated exposure control for dose reduction was used. CONTRAST: Patient injected with 100ml mL of Isovue 370. COMPARISON: 12/22/2015 TECHNIQUE: CT of the chest is performed on a spiral scan at 2 mm thick sections. Study is performed with intravenous contrast timed for evaluation for pulmonary embolism. This will limit additional po rtions of the evaluation. 3-D MIP images reconstructed by the technologist are reviewed on the compu ter in the coronal and sagittal planes. FINDINGS: No persistent filling defects are evident to suggest an acute pulmonary embolism. No mediastinal or hilar adenopathy enlarged by CT criteria is evident. The ascending aorta diameter at the level of the main pulmonary artery is 3.9 cm. The main pulmonary artery diameter at the bifurcation is 3.2 cm. Vascular calcifications within the coronary vessels. No dissection or aneurysm is evident within the thoracic aorta. Lung windows are clear. Limited CT sections were through the upper abdomen. Upper abdomen appears unremarkable. IMPRESSION: 1. No acute pulmonary embolism. 2. No acute pulmonary process.
[2024-04-14] MEDS: traMADol 50 MG STARTER PACK 3 TAB BTL PO STA (21:51)
[2024-04-14 23:38] VITALS: BP 151/83; PULSE 95; TEMP 98
== END 2024-04-14 23:38 | disposition home or self-care (01) ==
LOC: EC 16:28
DX: M54.2 Cervicalgia (principal); M54.6 Pain in thoracic spine; M54.50 Low back pain, unspecified; M25.512 Pain in left shoulder; M25.511 Pain in right shoulder; Z91.09 Other allergy status, other than to drugs and biological substances; Z91.040 Latex allergy status; Z88.5 Allergy status to narcotic agent
CPT/HCPCS: 36415; 93005; 85379; 83880; 80053; 83605; 83735; 84100; 84484; 85025; 85610; 85730; 71275; 99284; 96374; 96361 ×2; J2270; Q9967

== ENCOUNTER 2024-07-23 14:41 | Emergency (ER) | payer BC ==
[2024-07-23 14:49] VITALS: RESP 18
--- NOTE | 2024-07-23 15:33 | ED ---
Fall HPI - General Chief Complaint: Fall Stated Complaint: fall/hithead Time Seen by Provider: 07/23/24 14:57 Source: patient Mode of arrival: EMS - History of Present Illness Initial Comments: This is a 68-year-old male with history of diabetes and blood thinner use presenting for accidental fall backwards 2 hours ago. Patient states he was opening a car door when he tripped and fell backwards striking his head onto the pavement. Patient denies loss of consciousness, acute neck pain or any other significant injury. Patient states pain in back of head is mild. Patient does endorse history of chronic neck pain and bilateral frozen shoulders. Patient denies dizziness amnesia or vision changes prior to or after the fall. Patient endorses use of Xarelto. Patient denies chest pain, dyspnea, abdominal pain, radiculopathy, paresthesia, N/V. 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 Fall Witnessed: yes, by family Place Fall Occurred: street Loss of Consciousness: none Prolonged Down Time?: no Symptoms Prior to Fall: none Location: head Severity: mild Context: tripped/slipped - Related Data Home Medications Medication Instructions Recorded Confirmed Finasteride 5 mg PO HS 02/04/14 01/10/22 Insulin Glargine [Lantus Vial] 62 units SQ HS 02/04/14 01/10/22 Metoprolol Tartrate [Lopressor] 50 mg PO DAILY 02/04/14 01/10/22 Multivitamin [Men's Multi-Vitamin] 1 tab PO QAM 02/04/14 01/10/22 Propafenone HCl [Rythmol] 225 mg PO DAILY 02/04/14 01/10/22 Aspirin 325 mg PO HS 07/21/15 01/10/22 Lane-3 Fatty Acids/Fish Oil [Fish 1 cap PO BID 07/21/15 01/10/22 Oil 1,000 mg Softgel] Albuterol Inhaler [Ventolin Hfa 1 - 2 puff INHALATION RT-Q6H PRN 07/26/15 01/10/22 Inhaler] Albuterol Nebulized [Ventolin 2.5 mg INHALATION RT-QID PRN 07/26/15 01/10/22 Nebulized] Insulin Aspart [NovoLOG Flexpen] 26 units SQ W/BRKFST 11/16/16 01/10/22 Insulin Aspart [NovoLOG Flexpen] 28 units SQ W/LUNCH 11/16/16 01/10/22 Insulin Aspart [NovoLOG Flexpen] 30 units SQ W/SUPPER 11/16/16 01/10/22 Gabapentin [Neurontin] 300 mg PO TID 12/02/18 01/10/22 Atorvastatin Calcium [Lipitor] 20 mg PO HS 01/10/22 01/10/22 Cholecalciferol (Vitamin D3) 75 mcg PO DAILY 01/10/22 01/10/22 [Vitamin D3 (3000 Iu)] Naproxen Sodium [Aleve] 440 mg PO Q12HR 01/10/22 01/10/22 Nitroglycerin Sl Tabs [Nitrostat] 0.4 mg SUBLINGUAL Q5M PRN 01/10/22 01/10/22 ALPRAZolam [Xanax] 0.5 mg PO DAILY 01/11/22 01/11/22 Dapagliflozin Propanediol [Farxiga] 10 mg PO DAILY 01/11/22 01/11/22 Fluticasone Propion/Salmeterol 1 diskus INHALATION DAILY 01/11/22 01/11/22 [Advair 100-50 Diskus] Sertraline [Zoloft] 100 mg PO BID 01/11/22 01/11/22 Previous Rx's Medication Instructions Recorded HYDROcodone/APAP 7.5-325MG [[place] 1 tab PO Q4HR PRN #18 tab 04/14/24 7.5-325] Allergies Allergy/AdvReac Type Severity Reaction Status Date / Time adhesive Allergy SKIN PEEL, Verified 07/23/24 14:49 BLISTERS(states "paper tape is ok" latex Allergy Rash/Hives Verified 07/23/24 14:49 codeine AdvReac SEVERE Verified 07/23/24 14:49 HEADACHE Review of Systems ROS Statement: Those systems with pertinent positive or pertinent negative responses have been documented in the HPI. ROS Other: All systems not noted in ROS Statement are negative. Past Medical History Past Medical History: COPD, Diabetes Mellitus, GERD/Reflux, Hyperlipidemia, Myocardial Infarction ([place]), Prostate Disorder, Sleep Apnea/CPAP/BIPAP Additional Past Medical History / Comment(s): "irregular heart beat", hyperkeratosis hands and feet, enlarged prostate,no cpap. arthritis Last Myocardial Infarction Date:: 2005 History of Any Multi-Drug Resistant Organisms: None Reported Past Surgical History: Heart Catheterization With Stent, Orthopedic Surgery Additional Past Surgical History / Comment(s): left knee replacement, rt knee surgery, total 3 cardiac stents, COLONOSCOPY Past Anesthesia/Blood Transfusion Reactions: No Reported Reaction Additional Past Anesthesia/Blood Transfusion Reaction / Comment(s): no hx blood transfusion Date of Last Stent Placement:: NOV 2005 Past Psychological History: Anxiety, Depression Smoking Status: Never smoker Past Alcohol Use History: None Reported Past Drug Use History: None Reported - Past Family History Mother Family Medical History: Cancer Additional Family Medical History / Comment(s): breast Father Family Medical History: Diabetes Mellitus, Myocardial Infarction ([place]) Additional Family Medical History / Comment(s): CABG General Exam Limitations: no limitations General appearance: alert, in no apparent distress Head exam: Present: normocephalic, normal inspection, other (Positive mild hematoma on right occipital region of scalp. Negative significant tenderness, crepitus, deformity, open wound/laceration) Eye exam: Present: normal appearance, PERRL, EOMI. Absent: scleral icterus, conjunctival injection, periorbital swelling ENT exam: Present: normal exam, mucous membranes moist Neck exam: Present: normal inspection. Absent: tenderness, meningismus, lymphadenopathy Respiratory exam: Present: normal lung sounds bilaterally. Absent: respiratory distress, wheezes, rales, rhonchi, stridor Cardiovascular Exam: Present: regular rate, normal rhythm, normal heart sounds. Absent: systolic murmur, diastolic murmur, rubs, gallop, clicks GI/Abdominal exam: Present: soft, normal bowel sounds. Absent: distended, tenderness, guarding, rebound, rigid Extremities exam: Present: normal inspection, full ROM, normal capillary refill. Absent: tenderness, pedal edema, joint swelling, calf tenderness Back exam: Present: normal inspection Neurological exam: Present: alert, oriented X3, CN II-XII intact Psychiatric exam: Present: normal affect, normal mood Skin exam: Present: warm, dry, intact, normal color. Absent: rash Course Vital Signs 07/23/24 07/23/24 14:46 17:08 Temperature 98 F 98.8 F Pulse Rate 72 70 Respiratory 18 18 Rate Blood Pressure 144/72 126/75 O2 Sat by Pulse 98 98 Oximetry Medical Decision Making - Medical Decision Making Was pt. sent in by a medical professional or institution ([facility], INVESTIGATIVE REPORTER, urgent care, hospital, or senior living...) When possible be specific @ -[No] Did you speak to anyone other than the patient for history (EMS, parent, family, police, friend...)? What history was obtained from this source @ -[No] Did you review nursing and triage notes (agree or disagree)? Why? @ -[I reviewed and agree with nursing and triage notes] Were old charts reviewed (outside hosp., previous admission, EMS record, old EKG, old radiological studies, urgent care reports/EKG's, senior living records)? Report findings @ -[No old charts were reviewed] Differential Diagnosis (chest pain, altered mental status, abdominal pain women, abdominal pain men, vaginal bleeding, weakness, fever, dyspnea, syncope, headache, dizziness, GI bleed, back pain, seizure, CVA, palpatations, mental health, musculoskeletal)? @ -Subdural hematoma, subarachnoid hematoma, epidural hematoma, concussion without Loss of consciousness, cervical spine fracture EKG interpreted by me (3pts min.). @ -Not on X-rays interpreted by me (1pt min.). @ -[None done] CT interpreted by me (1pt min.). @ -Head and neck CT revealed no obvious hemorrhage or fracture. U/S interpreted by me (1pt. min.). @ -[None done] What testing was considered but not performed or refused? (CT, X-rays, U/S, labs)? Why? @ -[None] What meds were considered but not given or refused? Why? @ -[None] Did you discuss the management of the patient with other professionals (professionals i.e. [facility], INVESTIGATIVE REPORTER, lab, RT, psych nurse, oncology social work, tank wagon operator, teacher, field artillery officer, registered nurse hh case manager)? Give summary @ -[No] Was smoking cessation discussed for >3mins.? @ -[No] Was critical care preformed (if so, how long)? @ -[No] Were there social determinants of health that impacted care today? How? (Homelessness, low income, unemployed, alcoholism, drug addiction, transportation, low edu. Level, literacy, decrease access to med. care, half-way, rehab)? @ -[No] Was there de-escalation of care discussed even if they declined (Discuss DNR or withdrawal of care, Hospice)? DNR status @ -[No] What co-morbidities impacted this encounter? (DM, HTN, Smoking, COPD, CAD, Cancer, CVA, ARF, Chemo, Hep., AIDS, mental health diagnosis, sleep apnea, morbid obesity)? @ -[None] Was patient admitted / discharged? Hospital course, mention meds given and route, prescriptions, significant lab abnormalities, going to OR and other pertinent info. @ -Discharge. Head and neck CT was unremarkable. Patient advised to return to ER if the pain worsens, experiences visual changes, altered LOC, altered mental status, N/V. Undiagnosed new problem with uncertain prognosis? @ -[No] Drug Therapy requiring intensive monitoring for toxicity (Heparin, Nitro, Insulin, Cardizem)? @ -[No] Were any procedures done? @ -[No] Diagnosis/symptom? @ -Concussion without loss of consciousness Acute, or Chronic, or Acute on Chronic? @ -Acute Uncomplicated (without systemic symptoms) or Complicated (systemic symptoms)? @ -Uncomplicated Side effects of treatment? @ -[No] Exacerbation, Progression, or Severe Exacerbation? @ -[No] Poses a threat to life or bodily function? How? (Chest pain, [place], [place], pneumonia, PE, COPD, DKA, ARF, appy, cholecystitis, CVA, Diverticulitis, Homicidal, Suicidal, threat to staff... and all critical care pts) @ -[No] Disposition Clinical Impression: Contusion of head, Fall from standing Disposition: HOME SELF-CARE Condition: Good Instructions (If sedation given, give patient instructions): Fall Prevention for Older Adults (ED) Is patient prescribed a controlled substance at d/c from ED?: No Referrals: Telly Renae DO [Primary Care Provider] - 1-2 days Time of Disposition: 16:42
--- NOTE | 2024-07-23 16:31 | CT ---
EXAMINATION TYPE: CT brain trae wo con DATE OF EXAM: 07/23/2024 COMPARISON: HISTORY: pain after fall pt on thinners CT DLP: 1701.1 mGycm, Automated exposure control for dose reduction was used. CONTRAST: None CT of the brain is performed utilizing 3 mm thick sections through the posterior fossa and 3 mm thick sections through the remaining calvarium. Study is performed within 24 hours of arrival to the hospital. No abnormal hyperdensity is present to suggest an acute intracranial hemorrhage. No mass lesion is evident. No acute infarcts are evident. Ventricles and sulci are appropriate for the patient age. Paranasal sinuses and mastoid air cells within the [id number] are clear. IMPRESSIONS: 1. No acute intracranial process. Follow-up MRI can be performed as clinically indicated. CT cervical spine. COMPARISON: None CT of the cervical spine is performed in the axial plane at 2 mm thick sections. Reconstructed image s in the coronal, and sagittal plane are reviewed on the computer. No acute fractures are evident. Vertebral body alignment is normal. Mild disc space narrowing is present C6-7. Vertebral body heights are preserved. No spinal canal stenosis is evident. No neural foraminal stenosis is evident. IMPRESSION: 1. No acute osseous abnormality cervical spine. 2. Mild disc space narrowing C6-7 [facility], Workstation: [facility], 07/23/2024 4:29 PM
[2024-07-23 17:10] VITALS: BP 126/75; PULSE 70; TEMP 98.8
== END 2024-07-23 17:08 | disposition home or self-care (01) ==
LOC: EC 14:41
CPT/HCPCS: 70450; 72125; 99283